=== PATIENT | female | born 1955 | race Caucasian/White ===

== ENCOUNTER 2024-07-18 11:36 | Emergency (ER) | payer MEDICARE, OTHER, SELFPAY ==
[2024-07-18 12:01] VITALS: BP 143/88
[2024-07-18 12:23] LABS: % Basophils 1.6 % (0-2); % Eosinophils 4.5 % (0-6); % Immature Granulocytes 0.3 % (0-0.5); % Lymphocytes 21.2 % (20.5-51.1); % Monocytes 7.1 % (1.7-9.3); % Neutrophils 65.3 % (42.2-75.2); Absolute Basophils 0.2 10^3/uL (0-0.2); Absolute Eosinophils 0.4 10^3/uL (0-0.7); Absolute Monocytes 0.7 10^3/uL (0.1-0.6); Absolute Neutrophils 6.2 10^3/uL (1.4-6.5); Hematocrit 43.3 % (37.0-47.0); Mean Corp Hgb Conc. 34.6 g/dL (33.0-37.0); Mean Corpuscular Hgb 31.3 pg (27.0-31.0); Mean Corpuscular Volume 90.4 fL (81.0-99.0); Mean Platelet Volume 9.3 fL (7.4-10.4); Nucleated Red Blood Cells % 0 %; Platelet Count 458 10^3/uL (130-400); Red Blood Cell Count 4.79 10^6/uL (4.20-5.40); Red Cell Dist. Width 13.1 % (11.5-14.5); White Blood Cell Count 9.5 10^3/uL (4.8-10.8)
[2024-07-18 12:41] LABS: ALT (SGPT) 31 U/L (0-35); AST (SGOT) 37 U/L (14-36); Albumin 4.6 g/dl (3.5-5.0); Alkaline Phosphatase 143 U/L (38-126); Blood Urea Nitrogen 13 mg/dl (7-17); Calcium 10.3 mg/dl (8.4-10.2); Carbon Dioxide 25 mmol/L (22-30); Chloride 104 mmol/L (98-107); Glucose 102 mg/dl (70-99); Potassium 4.7 mmol/L (3.5-5.1); Sodium 140 mmol/L (135-145); Total Bilirubin 0.7 mg/dl (0.2-1.3); Total Protein 7.6 g/dl (6.3-8.2); eGFR > 60.00
[2024-07-18 12:48] LABS: Troponin I < 0.012 ng/ml
[2024-07-18 13:29] VITALS: BMI 20.7
[2024-07-18 13:31] VITALS: BP 137/89
[2024-07-18 14:00] VITALS: BP 134/85
--- NOTE | 2024-07-18 14:13 | ED.GENMED ---
History of Present Illness
General
Chief Complaint: Dizziness
Source: patient
Exam Limitations: none
Time Seen by Provider: 07/18/24 13:39
History of Present Illness
History of Present Illness:
69-year-old female with history of peripheral arterial disease on a statin presents with onset of dizziness last evening. She was sitting turned her head to the left and developed sudden dizziness which she described as a spinning sensation with
associated diaphoresis and nausea. There is no vomiting chest pain headache neck pain vision change or unilateral numbness or weakness. She is not anticoagulated. She has had vertigo in the past of which meclizine was helpful for her. This feels
much worse. Currently she denies dizziness. She notes only fatigue. She has been dealing with allergy symptoms.
Past History
Past History
ED Past Medical History: GERD
Social History
Tobacco: Smoker
Alcohol: None
Personal:
Phy Exam
Physical Exam
Physical Exam:
General: Well-appearing female no acute respiratory distress
HEENT: Normocephalic atraumatic pupils equal round reactive to light TMs normal extract motion intact. Subtle horizontal nystagmus noted tongue is symmetric
Heart: Regular rate and rhythm no murmurs
Lungs: Clear no wheeze
Neurologic exam: Alert and oriented finger-nose [id number] intact no drift on exam no facial asymmetry. Slightly increased symptoms upon Cele-Hallpike maneuver when turning the head to the left
Skin is warm no rash
Course
Orders/Labs/Results
Orders:
Orders
07/18/24 11:38
Electrocardiogram (*1) Urgent
Reason for Study: Chest Pain
EKG- Treatment ONCE
07/18/24 12:14
Complete Blood Count/With Diff Urgent
Comprehensive Metabolic Panel Urgent
Troponin I Urgent
07/18/24 14:13
Orthostatic VS- Treatment ONCE
Abnormal Lab Results
07/18/24
12:14
MCH 31.3 H pg
(27.0-31.0)
Plt Count 458 H 10^3/uL
(130-400)
Absolute Monos (auto) 0.7 H 10^3/uL
(0.1-0.6)
Glucose 102 H mg/dl
(70-99)
Calcium 10.3 H mg/dl
(8.4-10.2)
AST 37 H U/L
(14-36)
Alkaline Phosphatase 143 H U/L
(38-126)
07/18/24 12:14
07/18/24 12:14
Vital Signs
Initial and Last Documented VS:
Initial Vital Signs
Temp Pulse Resp BP Pulse Ox
98.2 F 71 18 143/88 97
07/18/24 12:01 07/18/24 12:01 07/18/24 12:01 07/18/24 12:01 07/18/24 12:01
Last Documented Vital Signs
Temp Pulse Resp BP Pulse Ox
98.2 F 61 18 137/89 98
07/18/24 12:01 07/18/24 13:29 07/18/24 12:01 07/18/24 13:31 07/18/24 13:31
MDM/Problems Addressed
Differential Diagnosis Includes:
Dizziness. Differential could include peripheral vertigo versus electrolyte abnormality versus anemia versus CVA versus arrhythmia
No unilateral deficit on exam to suggest CVA. No drift or ataxia noted. Symptoms are reproducible and I suspect more positional vertigo rather than CVA. EKG through triage shows sinus rhythm with a rate of 67 and no ischemic change. Labs
reviewed not anemic no electrolyte abnormality. Will check orthostatics
*Critical Care Note
Total Time (30-74mins, 75-104mins- exclusive of procedures): Not Applicable
Update Note
Update Note:
Patient has stable orthostatic vital signs. She is good on her feet. Pretty much symptom-free at this time other than some fatigue. No signs of CVA. Suspect peripheral vertigo. Recommend meclizine at home stable for discharge
ED Attending Note
-
Portions of this chart may have been created with voice recognition software.� Occasional wrong word or��sound alike� substitutions may have occurred due to the inherent limitations of voice recognition software.
Discharge Plan
Departure
Patient Disposition: Home (Routine Discharge)
Date of Disposition: 07/18/24
Time of Disposition: 14:57
Patient with high blood pressure during this ER visit?: No
Discharge Problem:
Vertigo
Instructions: Dizziness
Prescriptions:
No Action
esomeprazole magnesium [Nexium] 40 MG capsule,delayed release(DR/EC)
40 mg PO DAILY
Referrals:
UNKNOWN - PT DOES,NOT KNOW [Family Provider] -
Activity Restrictions/Additional Instructions:
Stay hydrated. Use meclizine if needed peer return if worse otherwise follow-up with your family doctor
Interventions
Interventions:
*Risk Screen - Suicide Last Done: 07/18/24 12:01
*General Assessment Last Done: 07/18/24 12:01
*Neglect/Abuse Screening Last Done: 07/18/24 12:01
ED- Fall Risk Assessment Last Done: 07/18/24 13:29
*ED COVID-19 Vaccine History Last Done: 07/18/24 13:29
ED- Neurological Assessment Last Done: 07/18/24 13:29
ED- Cardiac Assessment Last Done: 07/18/24 13:29
ED Swallowing Screen Last Done: 07/18/24 13:29
Discharge Date and Time
Print Language: TURKMEN
[2024-07-18 14:49] VITALS: BP 146/84
[2024-07-18 14:50] VITALS: BP 166/104
[2024-07-18 14:59] VITALS: BP 115/99; BP 134/85; BP 148/84; PULSE 68; PULSE 72; PULSE 74
== END 2024-07-18 15:18 | disposition home or self-care (01) ==
LOC: EMR 11:36
PROVIDERS: Emergency Medicine; EMERGENCY PHYSICIAN Emergency Medicine
DX: R42 Dizziness and giddiness (principal); I73.9 Peripheral vascular disease, unspecified; K21.9 Gastro-esophageal reflux disease without esophagitis; F17.200 Nicotine dependence, unspecified, uncomplicated
CPT/HCPCS: 99283; 80053; 84484; 85025; 93005

== ENCOUNTER 2024-08-19 16:52 | Inpatient (IN) | payer MEDICARE, OTHER, SELFPAY ==
[2024-08-19 13:42] VITALS: BP 111/84
[2024-08-19 14:27] VITALS: BMI 21.6
[2024-08-19 14:28] VITALS: BP 121/85
[2024-08-19 14:47] LABS: % Basophils 0.7 % (0-2); % Eosinophils 1.4 % (0-6); % Immature Granulocytes 0.5 % (0-0.5); % Lymphocytes 11.8 % (20.5-51.1); % Monocytes 8.5 % (1.7-9.3); % Neutrophils 77.1 % (42.2-75.2); Absolute Basophils 0.1 10^3/uL (0-0.2); Absolute Eosinophils 0.2 10^3/uL (0-0.7); Absolute Immature Granulocytes 0.1 10^3/uL (0-0.05); Absolute Lymphocytes 1.6 10^3/uL (1.2-3.4); Absolute Monocytes 1.2 10^3/uL (0.1-0.6); Absolute Neutrophils 10.5 10^3/uL (1.4-6.5); Hematocrit 43.2 % (37.0-47.0); Hemoglobin 14.5 g/dL (12.0-16.0); Mean Corp Hgb Conc. 33.6 g/dL (33.0-37.0); Mean Corpuscular Hgb 31.1 pg (27.0-31.0); Mean Corpuscular Volume 92.7 fL (81.0-99.0); Mean Platelet Volume 9.5 fL (7.4-10.4); Nucleated Red Blood Cells % 0 %; Platelet Count 421 10^3/uL (130-400); Red Blood Cell Count 4.66 10^6/uL (4.20-5.40); Red Cell Dist. Width 12.7 % (11.5-14.5); White Blood Cell Count 13.6 10^3/uL (4.8-10.8)
[2024-08-19 15:00] VITALS: BP 118/69
[2024-08-19 15:01] LABS: Blood Urea Nitrogen 13 mg/dl (7-17); Calcium 9.6 mg/dl (8.4-10.2); Carbon Dioxide 23 mmol/L (22-30); Chloride 102 mmol/L (98-107); Estimated Creatinine Clearance 76 ml/min; Glucose 154 mg/dl (70-99); Sodium 137 mmol/L (135-145); eGFR > 60.00
[2024-08-19 15:05] LABS: COVID-19 Antigen Negative (Negative)
--- NOTE | 2024-08-19 15:18 | ED.GENMED ---
History of Present Illness
General
Chief Complaint: Breathing Problem
Source: patient
Exam Limitations: none
Time Seen by Provider: 08/19/24 14:04
History of Present Illness
History of Present Illness:
Patient with cough and congestion for about 2 weeks. Some myalgias. Was on doxycycline. Started to feel better although now in the last few days has been feeling worse. Initially started with some minimal blood-streaked sputum slightly thicker
blood today. Some left lateral chest pain with this also. Mildly pleuritic in nature.
Past History
Past History
ED Past Medical History: GERD and Hypercholesterolemia
ED Past Surgical History: Cardiac (Ablation), Cholecystectomy and Gynecological
Social History
Tobacco: Smoker
Alcohol: None
Personal:
Review of Systems
Review of Systems
All Other Systems: Not applicable
Constitutional: Reports fever and chills
ABD/GI: Reports no symptoms
: Reports no symptoms
Phy Exam
Physical Exam
Physical Exam:
GENERAL: Alert and oriented in no apparent distress
EYE: Orbits normal.
NECK: Supple
ENT: Pharynx without erythema
CARDIAC: Regular rate and rhythm without any obvious murmurs.
LUNGS: No respiratory distress. Some crackles in the bases. Decreased breath sounds left base
ABDOMEN: Soft, without focal tenderness or distention
NEUROLOGICAL: Alert and oriented , grossly non-focal
SKIN: Warm and dry, no rash or lesion, no discoloration, skin intact.
MUSCULOSKELETAL: No edema,no deformity.Good color
PSYCH: Normal and appropriate interaction.
Scores
Heart Failure Risk
Heart Failure Risk Score: Not Applicable
Course
Orders/Labs/Results
Orders:
Orders
08/19/24 Breakfast
Cholesterol Lowering
At Your Request: Full Participation
Cholesterol Lowering: Sodium, 2 Gram
08/19/24 14:16
Cardiac Monitoring- Treatment ONCE
IV Insert/Care/Rem.- Treatment PRN
08/19/24 14:17
Electrocardiogram (*1) Stat
Reason for Study: Other
Other Reason for Exam: pneumonia
EKG- Treatment ONCE
CR Chest - 2 Views Urgent
Comment:
Reason For Exam: Cough/hemoptysis
08/19/24 14:37
Basic Metabolic Panel Urgent
COVID-19 Antigen Urgent
Source: Nasal Swab
Complete Blood Count/With Diff Urgent
Influenza A+B Rapid Molecular Urgent
DANIEL Source: Nasal Swab
Specimen Description:
08/19/24 16:11
Admit/Transfer Patient As Directed
Co-Sign Provider:
Level of Care: Inpatient admission
Assign to:: Medical/Surgical
Physician / Group: luis
Diagnosis: pnuemonia
Reason for Hospitalization: pneumonia
Expected length of stay greater than two midnights?: Yes
ELOS- Estimated Length of Stay in days: 3
I certify the patient meets the requirements for IP care: Yes
Code Status As Directed
Resuscitation Status: Full Code
PRN Pain Medication Management As Directed
May give lesser potent ordered pain med per pt: Yes
preference::
Protocol:: Medication orders for pain may be administered in a
manner that supports deferring to patient preference
when the pt is:
- Requesting an ordered lesser potent pain medication.
Least to most potent pain medications are defined
as: acetaminophen < NSAID < tramadol < opioids
(morphine, oxycodone, hydromorphone).
- Requesting a lesser dose of the same medication IF
ORDERED.
- Requesting a less intrusive route of administration
if both routes are prescribed by the provider (PO <
IV).
08/19/24 16:19
Azithromycin 500 mg/250 ml [Zithromax Infusion] 500 mg in 250 ml IV NOW
CefTRIAXone [Rocephin] 1,000 mg IV NOW STA
08/19/24 16:32
Acetaminophen [Tylenol] 650 mg PO NOW STA
08/19/24 19:42
Acetaminophen [Tylenol] 650 mg PO Q4HPRN PRN
Enoxaparin Sodium [Lovenox] 40 mg SC QPM
Ipratropium/Albuterol Sulfate [Duoneb] 3 ml INH R Q4HPRN PRN
08/19/24 19:42
Legionella Urinary Antigen Routine
DANIEL Source: Urine
Specimen Description:
Respiratory Culture/Gram Stain Routine
DANIEL Source: Sputum
Specimen Description:
Strep pneumoniae Antigen Routine
DANIEL Source: Urine
Specimen Description:
Activity As Directed
Activity Level: Out of Bed-Early Mobility
Intake/ Output As Directed
Frequency: Per unit guidelines
Quantify Hemopytsis As Directed
Vital Signs As Directed
Frequency: Per unit guidelines
Weight As Directed
Frequency: Once
Comment: on admission
DX Deep Vein Thrombosis Video Routine
08/19/24 20:00
Guaifenesin [Mucinex] 600 mg PO Q12
08/19/24 22:00
Atorvastatin [Lipitor] 40 mg PO HS
Sertraline HCl [Zoloft] 100 mg PO HS
08/20/24 06:00
Basic Metabolic Panel IN AM
Complete Blood Count/No Diff IN AM
08/20/24 16:00
Azithromycin 500 mg/250 ml [Zithromax Infusion] 500 mg in 250 ml IV Q24H
CefTRIAXone [Rocephin] 1,000 mg IV Q24H
08/21/24 06:00
Basic Metabolic Panel IN AM
Complete Blood Count/No Diff IN AM
08/22/24 06:00
Basic Metabolic Panel IN AM
Complete Blood Count/No Diff IN AM
08/23/24 06:00
Basic Metabolic Panel IN AM
Complete Blood Count/No Diff IN AM
Abnormal Lab Results
08/19/24
14:37
WBC 13.6 H 10^3/uL
(4.8-10.8)
MCH 31.1 H pg
(27.0-31.0)
Plt Count 421 H 10^3/uL
(130-400)
Abs Immat Gran (auto) 0.1 H 10^3/uL
(0-0.05)
Absolute Neuts (auto) 10.5 H 10^3/uL
(1.4-6.5)
Absolute Monos (auto) 1.2 H 10^3/uL
(0.1-0.6)
Neutrophils % 77.1 H %
(42.2-75.2)
Lymphocytes % 11.8 L %
(20.5-51.1)
Glucose 154 H mg/dl
(70-99)
08/19/24 14:37
08/19/24 14:37
Vital Signs
Initial and Last Documented VS:
Initial Vital Signs
Temp Pulse Resp BP Pulse Ox
99.1 F 103 20 111/84 95
08/19/24 13:42 08/19/24 13:42 08/19/24 13:42 08/19/24 13:42 08/19/24 13:42
Last Documented Vital Signs
Temp Pulse Resp BP Pulse Ox
98.5 F 82 18 112/76 95
08/19/24 19:50 08/19/24 19:50 08/19/24 19:50 08/19/24 19:50 08/19/24 19:50
*Pulse Oximetry
Patient hypoxic: no
*EKG
Interpreted by ED Provider?: Yes
Interpretation: normal
Comparison EKG: no changes
Heart Rate: 89
Rate: normal
Rhythm: sinus
[place]: normal axis
Interval: normal interval
QRS Pattern: normal QRS
Ischemia: no ischemia
*Critical Care Note
Total Time (30-74mins, 75-104mins- exclusive of procedures): Not Applicable
ED Attending Note
-
Portions of this chart may have been created with voice recognition software.� Occasional wrong word or��sound alike� substitutions may have occurred due to the inherent limitations of voice recognition software.
Discharge Plan
Departure
Patient Disposition: Admit
Date of Disposition: 08/19/24
Time of Disposition: 15:40
Presentation/result/management discussed w/ accepting MD/DO: Hospitalist
Discharge Problem:
Pneumonia/hemoptysis, Failed outpatient treatment
Interventions
Interventions:
*Risk Screen - Suicide Last Done: 08/19/24 13:42
*General Assessment Last Done: 08/19/24 13:42
*Neglect/Abuse Screening Last Done: 08/19/24 13:42
*ED COVID-19 Vaccine History Last Done: 08/19/24 14:39
*Nursing Disposition Last Done: 08/19/24 19:45
ED- Cardiac Assessment Last Done: 08/19/24 15:55
ED- Pulmonary Assessment Last Done: 08/19/24 14:40
Discharge Date and Time
Discharge Date/Time: 08/19/24 19:46
--- NOTE | 2024-08-19 15:51 | HPS.HSE ---
Family Physician
-
Family Physician: Jeremy Montoya
Chief Complaint
-
Cough congestion
History of Present Illness
69-year-old with past medical history for hyperlipidemia, anxiety presented to us with 2 weeks of generalized body achiness, cough with bloody sputum, congestion . She started having left-sided chest pain yesterday. Patient took doxycycline for 10
days .today was her last day.she felt little better on doxy, but her symptoms got worse. Patient complained of chills denied fever.stated headache .denied dizziness or syncopal episode .patient denies short of breath .patient denied abdominal pain,
nausea, vomiting, diarrhea. Patient denied dysuria, hematuria.
Chest x-ray with pneumonia. Admitting for further management.
Medical History
Past Medical History
Past Medical History: Reports Other
Additional Past Medical History:
Hyperlipidemia
Anxiety
Past Surgical History: Reports Other
Additional Past Surgical History:
Hysterectomy, cholecystectomy
Social History
Tobacco: Smoker (Less than half)
Alcohol: Occasional
Drug: None
Family History
Family History: Not pertinent
Allergies / Home Medications
Allergies reflects when Allergies were last updated in [employer].
Home Medications with original date entered in [employer]
Allergy/Medication List:
Allergies
Allergy/AdvReac Type Severity Reaction Status Date / Time
No Known Allergies Allergy Verified 08/19/24 13:45
Home Medications
atorvastatin 40 mg tablet 40 mg PO HS High Cholesterol 08/19/24
doxycycline monohydrate 100 mg capsule 100 mg PO BID Infection 08/19/24
sertraline 100 mg tablet 100 mg PO HS depression/anxiety 08/19/24
Review of Systems
-
Constitutional: Reports No Symptoms, Fatigue and Chills
EENT: Reports Runny Nose
Respiratory: Reports Cough, Hemoptysis and Trouble Breathing
Cardiac: Reports Chest Pain
Abdomen/GI: Reports No Symptoms
: Reports No Symptoms
Musculoskeletal: Reports No Symptoms
Skin: Reports No Symptoms
Neurological: Reports No Symptoms
Endocrine: Reports No Symptoms
Hematologic/Lymphatic: Reports No Symptoms
Psych: Reports No Symptoms
Physical Exam
Vital Signs
Vital Signs
Temp Pulse Resp BP Pulse Ox
99.1 F 92 17 121/85 96
08/19/24 13:42 08/19/24 14:28 08/19/24 14:28 08/19/24 14:28 08/19/24 14:40
Physical Exam
General: Well Developed, Well Nourished and No Apparent Distress
HEENT: NormoCephalic, Moist mucous membranes and Atraumatic
Respiratory: Clear
Cardiac: S1/S2 and Regular Rhythm; No Murmur or Rub
GI: Soft, Non Tender, Non Distended and Normal Bowel Sounds; No Organomegaly
Rectal: Deferred by Provider
Musculoskeletal: No Clubbing, No Cyanosis and No Edema
Skin: No Rash
Neuro: AO x 3 and Nonfocal/grossly intact
Psych: Calm
Laboratory Results
-
08/19/24 14:37
08/19/24 14:37
Data Reviewed
-
Diagnostic Radiology: Report Reviewed by me
Lab Data: Labs Reviewed by me
Impression/Plan
-
# Left lingular pneumonia
-WBC 13.6
-COVID-negative, influenza negative
-Chest x-ray with impression of Pneumonia of the lingula/left upper lobe. Radiographic follow-up to resolution is recommended.
-IV ceftriaxone and zithro
-Tylenol as needed for fever or pain
-Obtain sputum culture
-Obtain Legionella urine, strep pneumonia
-Mucinex as needed for cough
-quantify hemoptysis
# Hyperlipidemia
-Atorvastatin continued
# Anxiety
-Sertraline continued
# DVT prophylaxis
-Lovenox
# CODE STATUS
-Full code
[2024-08-19] MEDS: TYLENOL 650 MG PO (16:40)
[2024-08-19] MEDS: ROCEPHIN 1000 MG IV (16:41)
[2024-08-19] MEDS: ZITHROMAX INFUSION 250 IV (16:41)
--- NOTE | 2024-08-19 16:53 | W.PN.UPDATE ---
Update Note
Progress Note Update
This is an addendum to the H&P written by Kate Bernal on 08/19/2024. Patient seen and examined independently with [employer]
69-year-old female past medical history of presenting with cough with bloody clots and bloody sputum.
She developed cough with blood-tinged sputum 9 days ago with chills and shortness of breath and was started on doxycycline. Her symptoms improved but yesterday she began to have symptoms again with worsening cough, left-sided chest discomfort with
cough and bloody clots.
Chest x-ray shows pneumonia of the lingula/left upper lobe. Ceftriaxone/azithromycin. Sputum culture, quantify hemoptysis.
[2024-08-19 18:00] VITALS: BP 114/79
[2024-08-19 19:50] VITALS: BP 112/76; BMI 21.5
[2024-08-19] MEDS: LOVENOX 40 MG SC (21:01)
[2024-08-19] MEDS: ZOLOFT 100 MG PO (21:02)
[2024-08-19] MEDS: MUCINEX 600 MG PO (21:02)
[2024-08-19] MEDS: LIPITOR 40 MG PO (21:02)
[2024-08-19 23:22] VITALS: BP 114/72
[2024-08-20 07:20] VITALS: BP 133/85
--- NOTE | 2024-08-20 07:39 | W.PN.HOSP.TC ---
Addendum entered and electronically signed by Pam Stafford MD 08/20/24 14:30:
I saw and evaluated the patient independently. I reviewed the resident�s note and agree with findings and plan as documented by Dr. Salter.
GENERAL: well developed, well nourished, female in no apparent distress
HEENT: NC/AT
HEART: regular rate and rhythm, +S1, +S2
LUNGS : decreased breath sounds left lung base
ABDOM: soft, nontender, nondistended, + bowel sounds
EXT: no cyanosis, clubbing, or edema
NEUROLOGIC: grossly intact
Left lingular pneumonia with hemoptysis--likely persistent--s/p 10 days of doxycycline--no O2 requirements--cont ceftriaxone/zithromax--urine legionella and strep negative, Covid/flu negative--cont mucinex and quantify hemoptysis
Hyperlipidemia--Continue atorvastatin
Anxiety--Continue sertraline
smoker--counselled to stop
DVT prophylaxis--Lovenox
code status--FULL CODE
Original Note:
Today's Communication/Plan
-
.
Assessment / Plan
Assessment / Plan
69-year-old female with past medical history of hyperlipidemia and anxiety presented to [facility] with 2 weeks of generalized bodyaches, chills, cough with bloody sputum, congestion and left-sided chest pain, now being managed for left
lingula pneumonia.
#Left lingular pneumonia
Trend white blood cell count. Down from 13.6 yesterday to 13.2 today
Continue to trend fever, currently afebrile
Continue IV ceftriaxone and azithromycin
Continue Tylenol as needed for fever or pain
Continue Mucinex as needed for cough
Continue quantify hemoptysis
Sputum culture, Legionella urine, strep pneumonia pending
COVID and flu negative
#Hyperlipidemia
Continue atorvastatin
#Anxiety
Continue sertraline
#DVT prophylaxis
Lovenox
CODE STATUS: Full code
Anticipated Discharge: 24 - 48 hours
Subjective/Interval History
-
Date of Service: August 20, 2024
69-year-old female with past medical history of hyperlipidemia and anxiety presented to [facility] with 2 weeks of generalized bodyaches, chills, cough with bloody sputum, congestion and left-sided chest pain. She had been prescribed
doxycycline for 10 days, which improved symptoms slightly however eventually symptoms progressed. Chest x-ray showed pneumonia of the lingula/left upper lobe. Today in conversation, she states that overnight she was not able to sleep well, had
chills and night sweats, felt feverish and continued to have left-sided chest discomfort. She is still coughing up blood. She reports no headaches, nausea, vomiting, abdominal pain, GI upset, numbness or tingling in extremities.
Objective Data
-
Labs:
Laboratory Results
08/20/24
07:08
WBC Pending
Hgb Pending
Hct Pending
Plt Count Pending
Sodium Pending
Potassium Pending
Chloride Pending
Carbon Dioxide Pending
BUN Pending
Creatinine Pending
Glucose Pending
Calcium Pending
Vital Signs:
Vital Signs
Temp Pulse Resp BP Pulse Ox
99.1 F 86 17 114/72 93
08/19/24 23:22 08/19/24 23:22 08/19/24 23:22 08/19/24 23:22 08/19/24 23:22
I&O
08/19/24 08/20/24 08/21/24
06:59 06:59 06:59
Intake Total 0 / 0
Output Total 300 / 300
Balance -300 / -300
Review of Systems
-
History Source: Patient
Constitutional: Reports Sleep Disturbance, Night Sweats and Chills
Respiratory: Reports Cough and Hemoptysis
Cardiac: Reports Chest Pain
Abdomen/GI: Reports No Symptoms
Genitourinary: Reports No Symptoms
Musculoskeletal: Reports No Symptoms
Physical Exam
-
General: Well Developed, Well Nourished, Conversant and Other (Warm to touch)
HEENT: Normocephalic and Atraumatic
Respiratory: Decreased Breath Sounds
Cardiac: Regular Rhythm and S1/S2
GI: Soft, Nontender, Nondistended and Normal Bowel Sounds
Musculoskeletal: No Clubbing, No Cyanosis and No Edema
Skin: Warm and Dry
Neuro: AO x 3
Psych: Calm
Data Reviewed
-
CT Scan: Report Reviewed by me and Discussed with Physician
Labs: Labs Reviewed by me and Discussed with Physician
Old Records: Reviewed
[2024-08-20] MEDS: TYLENOL 650 MG PO ×2 (07:44→16:12)
[2024-08-20] MEDS: MUCINEX 600 MG PO ×2 (07:44→21:03)
[2024-08-20 07:51] LABS: Blood Urea Nitrogen 13 mg/dl (7-17); Calcium 9.5 mg/dl (8.4-10.2); Carbon Dioxide 24 mmol/L (22-30); Chloride 105 mmol/L (98-107); Estimated Creatinine Clearance 76 ml/min; Glucose 112 mg/dl (70-99); Potassium 4.7 mmol/L (3.5-5.1); Sodium 140 mmol/L (135-145); eGFR > 60.00
[2024-08-20 08:28] LABS: Hematocrit 41.6 % (37.0-47.0); Hemoglobin 14.1 g/dL (12.0-16.0); Mean Corp Hgb Conc. 33.9 g/dL (33.0-37.0); Mean Corpuscular Hgb 31.8 pg (27.0-31.0); Mean Corpuscular Volume 93.7 fL (81.0-99.0); Mean Platelet Volume 10.4 fL (7.4-10.4); Platelet Count 424 10^3/uL (130-400); Red Blood Cell Count 4.44 10^6/uL (4.20-5.40); Red Cell Dist. Width 12.7 % (11.5-14.5); White Blood Cell Count 13.2 10^3/uL (4.8-10.8)
--- NOTE | 2024-08-20 14:27 | CM ---
Patient seen at bedside. Patient stated that she lives alone in a 2 story condo. Patient stated that she has no DME at home. Patient PCP is Dr. Montoya and she uses the [facility] in [place]. Patient is independent and driving. Patient stated that she plans
to return home with no needs. CM will continue to follow of discharge planning needs.
Plan; home with VN vs home with no needs.
[2024-08-20] MEDS: STERILE WATER FOR INJECTION 10 ML IV (15:02)
[2024-08-20] MEDS: ROCEPHIN 1000 MG IV (15:03)
[2024-08-20] MEDS: ZITHROMAX INFUSION 250 IV (15:06)
[2024-08-20 15:20] VITALS: BP 139/82
[2024-08-20] MEDS: LOVENOX 40 MG SC (17:19)
[2024-08-20] MEDS: ZOLOFT 100 MG PO (21:02)
[2024-08-20] MEDS: LIPITOR 40 MG PO (21:02)
[2024-08-20 23:15] VITALS: BP 124/87
[2024-08-21] MEDS: TYLENOL 650 MG PO ×3 (02:44→15:13)
--- NOTE | 2024-08-21 07:20 | W.PN.HOSP.TC ---
Addendum entered and electronically signed by Nathalia Salter DO, Resident 08/21/24 18:01:
Patient meets criteria for SIRS at time of admission with WBC count elevated and tachycardia.
Addendum entered and electronically signed by Pam Stafford MD 08/21/24 13:37:
pt met criteria for sepsis (POA) due to Left lingular pneumonia
Addendum entered and electronically signed by Pam Stafford MD 08/21/24 12:59:
I saw and evaluated the patient independently. I reviewed the resident�s note and agree with findings and plan as documented by Dr. Salter.
GENERAL: well developed, well nourished, female in no apparent distress
HEENT: NC/AT
HEART: regular rate and rhythm, +S1, +S2
LUNGS : decreased breath sounds left lung base
ABDOM: soft, nontender, nondistended, + bowel sounds
EXT: no cyanosis, clubbing, or edema
NEUROLOGIC: grossly intact
Left lingular pneumonia with hemoptysis--likely persistent--s/p 10 days of doxycycline--no O2 requirements--change ceftriaxone/zithromax to augmentin at d/c 875mg BID x 10 days--urine legionella and strep negative, Covid/flu negative--cont mucinex
Hyperlipidemia--Continue atorvastatin
Anxiety--Continue sertraline
smoker--counselled to stop
DVT prophylaxis--Lovenox
code status--FULL CODE
OK for D/C
Original Note:
Today's Communication/Plan
-
.
Assessment / Plan
Assessment / Plan
69-year-old female with past medical history of hyperlipidemia and anxiety presented to [facility] with 2 weeks of generalized bodyaches, chills, cough with bloody sputum, congestion and left-sided chest pain, now being managed for left
lingula pneumonia.
#Left lingular pneumonia
Trend white blood cell count. Down from 13.6 to 13.2 to 13.7
Continue to trend fever, currently afebrile
Continue IV ceftriaxone and azithromycin
Continue Tylenol as needed for fever or pain
Continue Mucinex as needed for cough
Continue quantify hemoptysis
Sputum culture, Legionella urine, strep pneumonia negative
COVID and flu negative
#Hyperlipidemia
Continue atorvastatin
#Anxiety
Continue sertraline
#DVT prophylaxis
Lovenox
CODE STATUS: Full code
Anticipated Discharge: Within 24 hours
Subjective/Interval History
-
Date of Service: August 21, 2024
69-year-old female with past medical history of hyperlipidemia and anxiety presented to [facility] with 2 weeks of generalized bodyaches, chills, cough with bloody sputum, congestion and left-sided chest pain, now being managed for left
lingula pneumonia. Today she reports feeling better than yesterday, however continues to have left-sided pain. She states she still has blood-tinged sputum.
Objective Data
-
Labs:
Laboratory Results
08/21/24
06:34
WBC Pending
Hgb Pending
Hct Pending
Plt Count Pending
Sodium Pending
Potassium Pending
Chloride Pending
Carbon Dioxide Pending
BUN Pending
Creatinine Pending
Glucose Pending
Calcium Pending
Vital Signs:
Vital Signs
Temp Pulse Resp BP Pulse Ox
99.0 F 93 16 124/87 92
08/20/24 23:15 08/20/24 23:15 08/20/24 23:15 08/20/24 23:15 08/20/24 23:15
I&O
08/20/24 08/21/24 08/22/24
06:59 06:59 06:59
Intake Total 0 / 0 1330 / 1330
Output Total 300 / 300
Balance -300 / -300 1330 / 1330
Review of Systems
-
History Source: Patient
Constitutional: Reports No Symptoms
EENT: Reports No Symptoms Reported
Respiratory: Reports Cough and Hemoptysis
Cardiac: Reports No Symptoms
Abdomen/GI: Reports No Symptoms
Musculoskeletal: Reports Muscle Pain
Physical Exam
-
General: Well Developed, Well Nourished, No Apparent Distress and Conversant
HEENT: Normocephalic and Atraumatic
Respiratory: Crackles
Cardiac: Regular Rhythm and S1/S2
GI: Soft, Nontender, Nondistended and Normal Bowel Sounds
Musculoskeletal: No Clubbing, No Cyanosis and No Edema
Skin: Warm and Dry
Neuro: AO x 3
Psych: Calm
Data Reviewed
-
Labs: Labs Reviewed by me and Discussed with Physician
Old Records: Reviewed
[2024-08-21 07:30] VITALS: BP 133/77
[2024-08-21 08:01] LABS: Hematocrit 40.9 % (37.0-47.0); Hemoglobin 13.6 g/dL (12.0-16.0); Mean Corp Hgb Conc. 33.3 g/dL (33.0-37.0); Mean Corpuscular Hgb 31.3 pg (27.0-31.0); Mean Corpuscular Volume 94.2 fL (81.0-99.0); Mean Platelet Volume 10.1 fL (7.4-10.4); Platelet Count 420 10^3/uL (130-400); Red Blood Cell Count 4.34 10^6/uL (4.20-5.40); Red Cell Dist. Width 12.4 % (11.5-14.5); White Blood Cell Count 13.7 10^3/uL (4.8-10.8)
[2024-08-21] MEDS: MUCINEX 600 MG PO (08:10)
[2024-08-21 08:30] LABS: Blood Urea Nitrogen 11 mg/dl (7-17); Calcium 9.2 mg/dl (8.4-10.2); Carbon Dioxide 22 mmol/L (22-30); Chloride 103 mmol/L (98-107); Estimated Creatinine Clearance 76 ml/min; Glucose 96 mg/dl (70-99); Potassium 4.2 mmol/L (3.5-5.1); Sodium 137 mmol/L (135-145); eGFR > 60.00
--- NOTE | 2024-08-21 09:15 | PN.CDI ---
CDI
- -
CDI:
Physician Documentation Request
Admit Date: 08/19/24 16:52
Dear Doctor Joie,
Patient admitted with left lingular pneumonia.
On admission, WBC 13.6 and HR > 90.
Patient receiving IV Ceftriaxone and IV Zithromax.
Please clarify which of the following most accurately describes the status of the patient's infection:
Sepsis, POA
Pneumonia only
Other
Sepsis
- Systemic manifestations of infection, with 2 or more SIRS criteria which include:
- Fever >100.4 degrees F or hypothermia < 96.8 degrees F
- Leukocytosis - WBC > 12,000 or leukopenia - WBC < 4,000 or > 10% bands
- Tachycardia > 90 beats per minute
- Tachypnea - RR > 20 breaths per minute or PaCO2 , 32mmHg
Source: Merck Manual 2013
- Indicate the known or suspected organism
- Indicate the known or suspected underlying infection, such as pneumonia
Localized Infection Only, Without Systemic Illness
- indicate the site/source, such as pneumonia
Other
Use of terms such as suspected, likely, concern for, or probable (associated with a specific diagnosis that is being evaluated, monitored, or treated as if it exists) are acceptable and can be coded in the inpatient setting, when documented at the
time of discharge.
Thank you,
Sanam BALTAZAR,RN,CCDS
CDI Specialist
Available via tiger text
Please use your independent medical judgment in providing your response.
--- NOTE | 2024-08-21 12:19 | W.DCSUMMARY ---
Addendum entered and electronically signed by Pam Stafford MD 08/21/24 18:45:
Read, reviewed, and agree. See same day progress note for additional details. Time spent coordinating care, DC planning, review of DC plan of care with resident, transition of care, review of records in EMR, med rec, consults, notes, d/w
consultants, nursing, family, and CM = 32 minutes
Patient should also have a chest x-ray to ensure clearance after completion of the new antibiotic, Augmentin.
Original Note:
Discharge Summary
Discharge Data
Date of Admission: 08/19/24
Date of Discharge: 08/21/24
Total time spent discharging patient (in min): 32
-
Pending Results: No
Hospital Course
Presenting symptoms: Left-sided chest pain, blood-tinged sputum
Hospital diagnosis: Left-sided pneumonia
Hospital Course: 69-year-old female with past medical history of hyperlipidemia and anxiety presented to [facility] with 2 weeks of generalized bodyaches, chills, cough with bloody sputum, congestion and left-sided chest pain, now being
managed for left lingula pneumonia. She had been prescribed doxycycline for 10 days, which improved symptoms slightly however eventually symptoms progressed. Chest x-ray showed pneumonia of the lingula/left upper lobe. At home, she was
experiencing a fever, chills, left-sided rib pain and blood-tinged sputum. COVID and flu was negative at time of admission. Urine Legionella and strep is negative. On 08/19, she was experiencing leukocytosis without fevers. During admission she
was started on IV ceftriaxone and azithromycin, Tylenol and Mucinex for pneumonia coverage and symptom management. All other home medications were continued. Patient continued to remain afebrile and stable and will be discharged home with
Augmentin.
#Left lingular pneumonia: Take Augmentin twice a day for 10 days for pneumonia management. Continue Tylenol and Mucinex for symptom management.
#Hyperlipidemia: Continue atorvastatin
#Anxiety: Continue sertraline
Imaging reviewed during admission:
CXR (08/20):
IMPRESSION:
Pneumonia of the lingula/left upper lobe. Radiographic follow-up to resolution is recommended.
Discharge Plan
-
Patient Disposition: Home (Routine Discharge)
Discharge Diagnosis/Procedures: pneumonia
Condition: Fair
Diet: No restrictions, As tolerated and Regular
Activity: No restrictions and As tolerated
Driving Restrictions: As prior to admission
Referrals:
Jeremy Montoya MD [Family Provider] - in less than 1 week
Additional Discharge Medication Instructions: Please take augmentin twice daily with food
Please take tylenol as needed for pain/fever
Please take Mucinex as needed for cough/sputum
Prescriptions:
New
amoxicillin-pot clavulanate [Augmentin] 500-125 mg tablet
1 tab PO BID Qty: 20 0RF
Continued
atorvastatin 40 mg Tablet
40 mg PO HS
sertraline 100 mg Tablet
100 mg PO HS
Discontinued
doxycycline monohydrate 100 mg Capsule
100 mg PO BID
Discharge Orders:
Discharge Patient (As Directed); Ordered 08/21/24
Ordered By: Nathalia Salter
Discharge Date and Time
Print Language: K[place]HILI
--- NOTE | 2024-08-21 14:59 | CM ---
Patient seen at bedside with physician. Patient states that she is eager to go home. IMM reviewed and signed form placed on chart. Patient for family to transport home. Patient with no VN for supports at this time. CM will continue to follow for
discharge planning needs.
Plan; home with no needs anticipated.
[2024-08-21] MEDS: ROCEPHIN 1000 MG IV (15:04)
[2024-08-21] MEDS: STERILE WATER FOR INJECTION 10 ML IV (15:05)
[2024-08-21] MEDS: ZITHROMAX INFUSION 250 IV (15:05)
[2024-08-21 15:20] VITALS: BP 139/89
[2024-08-22 15:35] LABS: Hepatitis C Antibody Negative (Negative)
== END 2024-08-21 17:05 | disposition home or self-care (01) | DRG 871 ==
LOC: 4 EAST ACU 16:52
PROVIDERS: Registered Nurse; ADMITTING PHYSICIAN Hospitalist; ATTENDING PHYSICIAN Internal Medicine; EMERGENCY PHYSICIAN Emergency Medicine; FAMILY PHYSICIAN Internal Medicine
DX: A41.9 Sepsis, unspecified organism (principal); J18.9 Pneumonia, unspecified organism; E78.00 Pure hypercholesterolemia, unspecified; F41.9 Anxiety disorder, unspecified; F17.200 Nicotine dependence, unspecified, uncomplicated; K21.9 Gastro-esophageal reflux disease without esophagitis; Z11.52 Encounter for screening for COVID-19; Z79.899 Other long term (current) drug therapy
CPT/HCPCS: 71046; 80048; 85025; 85027; 86803; 87205; 87449; 87502; 87811; 87899; 93005; 99285; 99406

== ENCOUNTER 2024-08-25 20:07 | Inpatient (IN) | payer MEDICARE, OTHER, SELFPAY ==
[2024-08-25] VITALS (11 sets, daily range): BP systolic 112–139; BP diastolic 63–95; BMI 19.9; BMI 19.5
--- NOTE | 2024-08-25 12:23 | ED.GENMED ---
ED Provider Triage
<Zaina Barbour PAINT BOOTH OPERATOR - Last Filed: 08/25/24 12:24>
-
Attestation: A medical screening examination has been initiated by a qualified medical provider. Based on the assessment performed at this time, it has been determined that an emergent medical condition may exist and the patient has been informed
that further medical evaluation and possible additional diagnostic testing may be needed.
HPI:
GENERAL: Alert , in no apparent distress
EYE: No visual abnormalities.
NECK: Trachea midline
ENT: No visible abnormalities.
LUNGS: No acute respiratory distress
NEUROLOGICAL: Alert and oriented
SKIN: Skin intact. No visible changes.
MUSCULOSKELETAL: Moving extremities normally
PSYCH: Normal and appropriate interaction.
This is a medical evaluation conducted in person to initiate diagnostic evaluation and provide initial therapeutics. Please see further documentation by the treating clinician.
History of Present Illness
<Zaina Barbour PAINT BOOTH OPERATOR - Last Filed: 08/25/24 12:24>
General
Chief Complaint: Breathing Problem
Time Seen by Provider: 08/25/24 12:23
<Leonard Arrington PA-C - Last Filed: 08/25/24 19:29>
History of Present Illness
History of Present Illness:
69-year-old female with history of chronic tobacco use and hyperlipidemia presents to the emergency department for evaluation of worsening shortness of breath, chest tightness, productive cough, and fatigue. She was discharged from this hospital 4
days ago with a diagnosis of pneumonia, currently still on Augmentin for a total of 10 days. Continues to have blood-tinged sputum and just has not had any symptomatic improvement. Denies continued fever but does have body aches.
Past History
<Zaina Barbour PAINT BOOTH OPERATOR - Last Filed: 08/25/24 12:24>
Past History
ED Past Medical History: GERD and Hypercholesterolemia
ED Past Surgical History: Cardiac (Ablation), Cholecystectomy and Gynecological
Social History
Tobacco: Smoker
Alcohol: None
Personal:
Review of Systems
<Leonard Arrington PA-C - Last Filed: 08/25/24 19:29>
Review of Systems
Allergies reviewed?: Yes
All Other Systems: ROS reviewed and negative except as documented in HPI and ROS
Phy Exam
<Leonard Arrington PA-C - Last Filed: 08/25/24 19:29>
Physical Exam
Physical Exam:
GEN: Well appearing, NAD, WDWN
Eyes: PERRLA, EOMs intact, no scleral icterus
HENT: NCAT, oral mucosa moist
Lungs: Mildly tachypneic but with no increased respiratory effort otherwise, lungs globally clear with diminished bibasilar breath sounds
Cardiac: RRR, no M/R/G, no peripheral edema. Radial pulses 2+ bilat
Neuro: AO x 3
MSK: No gross deformity or ecchymosis. No edema. No digital clubbing
Skin: No rashes, petechiae. Normal color, no pallor or jaundice.
Psych: Calm, cooperative, proper hygiene
Scores
<Leonard Arrington PA-C - Last Filed: 08/25/24 19:29>
Heart Failure Risk
Heart Failure Risk Score: Not Applicable
Course
<Zaina Barbour, PAINT BOOTH OPERATOR - Last Filed: 08/25/24 12:24>
Orders/Labs/Results
Orders:
Orders
08/25/24 12:50
Electrocardiogram (*1) Urgent
Reason for Study: Chest Pain
Cardiac Monitoring- Treatment ONCE
EKG- Treatment ONCE
IV Insert/Care/Rem.- Treatment PRN
08/25/24 12:58
Complete Blood Count/With Diff Urgent
Comprehensive Metabolic Panel Urgent
08/25/24 13:40
0.9% Sodium Chloride 1000 ml [Nss] 1,000 ml IV BOLUS
CR Chest - 2 Views Urgent
Comment:
Reason For Exam: PNA, f/u, worsening symptoms
08/25/24 14:27
CT Chest Pe Study Urgent
Comment:
Reason For Exam: worsening lingular infiltrate/hemoptysis
08/25/24 18:42
Ketorolac [Toradol] 15 mg IV NOW STA
LevoFLOXacin 750 MG/150 ML [Levaquin] 750 mg in 150 ml IV NOW
Abnormal Lab Results
08/25/24
12:58
WBC 14.4 H 10^3/uL
(4.8-10.8)
Plt Count 525 H D 10^3/uL
(130-400)
Abs Immat Gran (auto) 0.1 H 10^3/uL
(0-0.05)
Absolute Neuts (auto) 11.1 H 10^3/uL
(1.4-6.5)
Absolute Monos (auto) 1.2 H 10^3/uL
(0.1-0.6)
Neutrophils % 77.2 H %
(42.2-75.2)
Lymphocytes % 9.5 L %
(20.5-51.1)
Glucose 168 H mg/dl
(70-99)
AST 48 H U/L
(14-36)
ALT 43 H U/L
(0-35)
08/25/24 12:58
08/25/24 12:58
Vital Signs
Initial and Last Documented VS:
Initial Vital Signs
Temp Pulse Resp BP Pulse Ox
97.9 F 92 16 129/81 97
08/25/24 11:31 08/25/24 11:31 08/25/24 11:31 08/25/24 11:31 08/25/24 11:31
Last Documented Vital Signs
Temp Pulse Resp BP Pulse Ox
97.9 F 85 40 132/78 95
08/25/24 11:31 08/25/24 18:15 08/25/24 18:15 08/25/24 18:00 08/25/24 18:15
<Leonard Arrington PA-C - Last Filed: 08/25/24 19:29>
Orders/Labs/Results
Orders:
Orders
08/25/24 12:50
Electrocardiogram (*1) Urgent
Reason for Study: Chest Pain
Cardiac Monitoring- Treatment ONCE
EKG- Treatment ONCE
IV Insert/Care/Rem.- Treatment PRN
08/25/24 12:58
Complete Blood Count/With Diff Urgent
Comprehensive Metabolic Panel Urgent
08/25/24 13:40
0.9% Sodium Chloride 1000 ml [Nss] 1,000 ml IV BOLUS
CR Chest - 2 Views Urgent
Comment:
Reason For Exam: PNA, f/u, worsening symptoms
08/25/24 14:27
CT Chest Pe Study Urgent
Comment:
Reason For Exam: worsening lingular infiltrate/hemoptysis
08/25/24 18:42
Ketorolac [Toradol] 15 mg IV NOW STA
LevoFLOXacin 750 MG/150 ML [Levaquin] 750 mg in 150 ml IV NOW
Abnormal Lab Results
08/25/24
12:58
WBC 14.4 H 10^3/uL
(4.8-10.8)
Plt Count 525 H D 10^3/uL
(130-400)
Abs Immat Gran (auto) 0.1 H 10^3/uL
(0-0.05)
Absolute Neuts (auto) 11.1 H 10^3/uL
(1.4-6.5)
Absolute Monos (auto) 1.2 H 10^3/uL
(0.1-0.6)
Neutrophils % 77.2 H %
(42.2-75.2)
Lymphocytes % 9.5 L %
(20.5-51.1)
Glucose 168 H mg/dl
(70-99)
AST 48 H U/L
(14-36)
ALT 43 H U/L
(0-35)
08/25/24 12:58
08/25/24 12:58
Vital Signs
Initial and Last Documented VS:
Initial Vital Signs
Temp Pulse Resp BP Pulse Ox
97.9 F 92 16 129/81 97
08/25/24 11:31 08/25/24 11:31 08/25/24 11:31 08/25/24 11:31 08/25/24 11:31
Last Documented Vital Signs
Temp Pulse Resp BP Pulse Ox
97.9 F 85 40 132/78 95
08/25/24 11:31 08/25/24 18:15 08/25/24 18:15 08/25/24 18:00 08/25/24 18:15
<Leonard Arrington PA-C - Last Filed: 08/25/24 19:29>
MDM/Problems Addressed
MDM/Problems Addressed:
PE study was obtained due to the patient's hemoptysis, this did not show evidence for PE however it is unclear whether her lung abnormalities represent a mass or pneumonia. Given the rapid worsening on chest x-ray I suspect there is at least some
component of pneumonia but with the hemoptysis and her prior tobacco use, lung malignancy remains high on the differential. Although she is clinically stable, consideration of failing outpatient management of pneumonia warrants admission for IV
antibiotics, empiric Levaquin given.
<Leonard Arrington PA-C - Last Filed: 08/25/24 19:29>
*Critical Care Note
Total Time (30-74mins, 75-104mins- exclusive of procedures): Not Applicable
ED Attending Note
<Zaina V. Day, PAINT BOOTH OPERATOR - Last Filed: 08/25/24 12:24>
-
Portions of this chart may have been created with voice recognition software.� Occasional wrong word or��sound alike� substitutions may have occurred due to the inherent limitations of voice recognition software.
Discharge Plan
Departure
Patient Disposition: Admit
Date of Disposition: 08/25/24
Time of Disposition: 19:14
Admit to: Med/Surg
Presentation/result/management discussed w/ accepting MD/DO: Hospitalist
Discharge Problem:
Cough with hemoptysis
Prescriptions:
No Action
atorvastatin 40 mg Tablet
40 mg PO HS
sertraline 100 mg Tablet
100 mg PO HS
amoxicillin-pot clavulanate [Augmentin] 500-125 mg tablet
1 tab PO BID Qty: 20 0RF
acetaminophen [Tylenol Extra Strength] 500 mg Tablet
1,000 mg PO Q6HPRN PRN (Reason: mild pain/fever)
Referrals:
Jeremy Montoya MD [Family Provider] -
Interventions
Interventions:
*Risk Screen - Suicide Last Done: 08/25/24 12:55
*General Assessment Last Done: 08/25/24 12:55
*Neglect/Abuse Screening Last Done: 08/25/24 12:55
ED- Fall Risk Assessment Last Done: 08/25/24 12:55
*ED COVID-19 Vaccine History Last Done: 08/25/24 12:55
ED- Cardiac Assessment Last Done: 08/25/24 12:55
ED- Pulmonary Assessment Last Done: 08/25/24 12:55
Discharge Date and Time
Print Language: RWANDAN
[2024-08-25 13:13] LABS: % Eosinophils 3.5 % (0-6); % Immature Granulocytes 0.5 % (0-0.5); % Lymphocytes 9.5 % (20.5-51.1); % Monocytes 8.3 % (1.7-9.3); % Neutrophils 77.2 % (42.2-75.2); Absolute Basophils 0.2 10^3/uL (0-0.2); Absolute Eosinophils 0.5 10^3/uL (0-0.7); Absolute Immature Granulocytes 0.1 10^3/uL (0-0.05); Absolute Lymphocytes 1.4 10^3/uL (1.2-3.4); Absolute Monocytes 1.2 10^3/uL (0.1-0.6); Absolute Neutrophils 11.1 10^3/uL (1.4-6.5); Hematocrit 39.8 % (37.0-47.0); Hemoglobin 13.5 g/dL (12.0-16.0); Mean Corp Hgb Conc. 33.9 g/dL (33.0-37.0); Mean Corpuscular Volume 91.3 fL (81.0-99.0); Mean Platelet Volume 9.8 fL (7.4-10.4); Nucleated Red Blood Cells % 0 %; Platelet Count 525 10^3/uL (130-400); Red Blood Cell Count 4.36 10^6/uL (4.20-5.40); Red Cell Dist. Width 12.6 % (11.5-14.5); White Blood Cell Count 14.4 10^3/uL (4.8-10.8)
[2024-08-25 13:27] LABS: ALT (SGPT) 43 U/L (0-35); AST (SGOT) 48 U/L (14-36); Albumin 3.6 g/dl (3.5-5.0); Alkaline Phosphatase 116 U/L (38-126); Blood Urea Nitrogen 15 mg/dl (7-17); Calcium 9.6 mg/dl (8.4-10.2); Carbon Dioxide 24 mmol/L (22-30); Chloride 100 mmol/L (98-107); Estimated Creatinine Clearance 69 ml/min; Glucose 168 mg/dl (70-99); Potassium 4.3 mmol/L (3.5-5.1); Sodium 137 mmol/L (135-145); Total Bilirubin 0.5 mg/dl (0.2-1.3); Total Protein 6.9 g/dl (6.3-8.2); eGFR > 60.00
[2024-08-25] MEDS: NSS 1000 IV (13:58)
--- NOTE | 2024-08-25 14:01 | EDRN ---
Pt showed this RN her mucous coughed up and it was bright red and bloody, not streaked. Pt given a spec container to cough up into.
--- NOTE | 2024-08-25 17:03 | EDRN ---
Pt asking to eat. This RN TT'd D. Murphy MALONE who said okay for pt to eat.
--- NOTE | 2024-08-25 17:35 | EDRN ---
Pt just returned from CT scan and administered a boxed lunch.
[2024-08-25] MEDS: TORADOL 15 MG IV (18:51)
[2024-08-25] MEDS: LEVAQUIN 150 IV (18:54)
--- NOTE | 2024-08-25 19:38 | HPS.HSE ---
Family Physician
-
Family Physician: Jeremy Montoya
Chief Complaint
-
Chest pain, shortness of breath and sweats
History of Present Illness
This is a 69-year-old female was past medical history of hyperlipidemia, depression/anxiety and longstanding smoking history who presents to the emergency department with recurrent episodes of blood-tinged productive cough, shortness of breath, and
chest pain with chills.
Patient has been battling symptoms for at least 2 weeks now. She reported that she initially developed blood-tinged productive cough and shortness of breath and was seen in urgent care. She was diagnosed with pneumonia at that time. She was
placed on doxycycline and improved after about 2 days of medications. However only thing today her symptoms worsened again. She came to the emergency department and was diagnosed with or pneumonia again. Patient underwent 2 days of IV antibiotics
and will transition to oral amoxicillin. She was discharged last week. Over the last 2 days patient reported development of blood-tinged cough again. But mostly she complained of worsening shortness of breath chills and sweats. She had no
fevers. She denied any history of immunosuppression. She has no history of recurrent pneumonias. She denied any recent travel. She has no known sick contacts.
During her last admission tested negative for COVID flu or Legionella.
In the emergency room today she was febrile, blood pressure was 132/78 and she was satting 97% on room air. ECG showed normal sinus rhythm at a rate of 88. She had a increased leukocytosis to 14,000 with rest of the CBC unremarkable. Chemistries
were unremarkable. She had a CT PE study which was negative for PE. There was extensive hilar mediastinal and left axillary adenopathy. There was adenopathy at the base of the neck on the right. Confluent adenopathy encircling the left pulmonary
artery as well as the proximal left upper lobe and left lower lobe pulmonary arteries, with extrinsic compression especially involving the left upper lobe pulmonary artery. There is also proximal left upper lobe and lingula bronchus stenosis, likely
contributing to postobstructive atelectasis and/or pneumonia in the lingula and to a lesser degree in the left upper lobe. Small left pleural effusion. Focal oblong soft tissue attenuation in the left perihilar region.
Medical History
Past Medical History
Past Medical History: Reports Hypercholesterolemia
Past Surgical History: Reports Gynocological
Social History
Tobacco: Smoker
Alcohol: None
Drug: None
Personal: Single
Living: Alone
Employment: Retired
Family History
Family History: Not pertinent
Allergies / Home Medications
Allergies reflects when Allergies were last updated in [employer].
Home Medications with original date entered in [employer]
Allergy/Medication List:
Allergies
Allergy/AdvReac Type Severity Reaction Status Date / Time
No Known Allergies Allergy Verified 08/19/24 13:45
Home Medications
atorvastatin 40 mg tablet 40 mg PO HS High Cholesterol 08/19/24
sertraline 100 mg tablet 100 mg PO HS depression/anxiety 08/19/24
amoxicillin 500 mg-potassium clavulanate 125 mg tablet (Augmentin) 1 tab PO BID #20 tabs 08/21/24
acetaminophen 500 mg tablet (Tylenol Extra Strength) 1,000 mg PO Q6HPRN PRN mild pain/fever 08/25/24
Review of Systems
-
Constitutional: Reports Night Sweats and Chills
EENT: Reports No Symptoms
Respiratory: Reports No Symptoms
Cardiac: Reports No Symptoms
Abdomen/GI: Reports No Symptoms
: Reports No Symptoms
Musculoskeletal: Reports No Symptoms
Skin: Reports No Symptoms
Neurological: Reports No Symptoms
Endocrine: Reports No Symptoms
Hematologic/Lymphatic: Reports No Symptoms
Psych: Reports No Symptoms
Physical Exam
Vital Signs
Vital Signs
Temp Pulse Resp BP Pulse Ox
98.3 F 85 40 132/78 95
08/25/24 19:36 08/25/24 18:15 08/25/24 18:15 08/25/24 18:00 08/25/24 18:15
Physical Exam
General: Well Developed, Well Nourished, Appears in Distress, Pain and Chills
HEENT: NormoCephalic, Anicteric, Moist mucous membranes and Atraumatic
Respiratory: Clear
Cardiac: S1/S2 and Regular Rhythm
Breast: Deferred by me
GI: Soft, Non Tender, Non Distended and Normal Bowel Sounds
Rectal: Deferred by Provider
Genito-urinary: Deferred by me
Musculoskeletal: No Clubbing, No Cyanosis and No Edema
Skin: Warm
Neuro: Awake, AO x 3 and Nonfocal/grossly intact
Psych: Calm
Laboratory Results
-
08/25/24 12:58
08/25/24 12:58
Laboratory Results
Total Bilirubin 0.5 mg/dl (0.2-1.3) 08/25/24 12:58
AST 48 U/L (14-36) H 08/25/24 12:58
ALT 43 U/L (0-35) H 08/25/24 12:58
Alkaline Phosphatase 116 U/L (38-126) 08/25/24 12:58
Data Reviewed
-
CT Scan: Report Reviewed by me
Medical Tests (Nuc Med, Echo, EKG etc): Image Personally Visualized and interpreted
Lab Data: Labs Reviewed by me
Old Records: Reviewed
Impression/Plan
-
IMPRESSION:
69-year-old female who now has approximately 2 weeks of productive cough with scant hemoptysis with current imaging now showing likely postobstructive atelectasis or pneumonia in the lingula and there is lesser degree in the left upper lobe, left
upper lobe and lingula bronchus stenosis likely from extrinsic compression, extrinsic compression involving the left upper lobe pulmonary artery secondary to complex adenopathy encircling the left mammary artery as well as the proximal left upper
lobe and left lower lobe pulmonary arteries with extensive hilar mediastinal and axillary adenopathy.
PLAN:
1. EDSON consolidation and adenopathy - Pneumonia with reactive adenopathy vs post obstructive pneumonia secondary to pneumonia or lung Ca. Scant hemoptysis with mucus. HD stable. Afebrile. Satting 97% at rest. Uncomfortable.
- admit to med/surg
- sputum cultures, stain and cytology
- continue levaquin for now
- pain control
- Pulmonary consult for possible bronch
DVT PPX - lovenox sq
Code status - DNR
--- NOTE | 2024-08-25 21:30 | PTCARENOTE ---
Patient admitted from the ED. Patient ambulated into room. Patient AAOX3. Patient is able to independently state needs. Call hernandez within reach. Complains of 8/10 LUQ abdomen pain. Will continue with current plan.
[2024-08-25] MEDS: LIPITOR 40 MG PO (22:21)
[2024-08-25] MEDS: DILAUDID 0.5 MG IV (22:22)
[2024-08-25] MEDS: ZOLOFT 100 MG PO (22:22)
[2024-08-25] MEDS: COMPAZINE 5 MG IV (23:16)
[2024-08-25] MEDS: TORADOL 10 MG IV (23:24)
[2024-08-26 07:00] VITALS: BP 139/86
[2024-08-26 07:32] LABS: Hematocrit 39.7 % (37.0-47.0); Mean Corp Hgb Conc. 32.7 g/dL (33.0-37.0); Mean Corpuscular Hgb 31.1 pg (27.0-31.0); Mean Platelet Volume 10.1 fL (7.4-10.4); Platelet Count 553 10^3/uL (130-400); Red Blood Cell Count 4.18 10^6/uL (4.20-5.40); Red Cell Dist. Width 12.5 % (11.5-14.5); White Blood Cell Count 9.8 10^3/uL (4.8-10.8)
[2024-08-26 08:10] LABS: Blood Urea Nitrogen 15 mg/dl (7-17); Calcium 9.3 mg/dl (8.4-10.2); Carbon Dioxide 28 mmol/L (22-30); Chloride 101 mmol/L (98-107); Estimated Creatinine Clearance 79 ml/min; Glucose 93 mg/dl (70-99); Magnesium 2.3 mg/dl (1.6-2.3); Potassium 4.9 mmol/L (3.5-5.1); Sodium 139 mmol/L (135-145); eGFR > 60.00
[2024-08-26] MEDS: TYLENOL 650 MG PO ×2 (08:13→21:14)
--- NOTE | 2024-08-26 10:51 | W.PN.HOSP.TC ---
Today's Communication/Plan
-
see A/P
Assessment / Plan
Assessment / Plan
HPI: 69-year-old female with PMH hyperlipidemia, depression/anxiety and longstanding smoking history who presented with recurrent episodes of blood-tinged productive cough, shortness of breath, chest pain with chills. 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
She initially developed blood-tinged productive cough and shortness of breath and was seen in urgent care. She was diagnosed with pneumonia at that time. She was placed on doxycycline and improved after about 2 days of medications. However her
symptoms then worsened. She came to the emergency department and was diagnosed with pneumonia again. Patient underwent 2 days of IV antibiotics and will transition to oral amoxicillin. She was discharged the week prior.
Over the last 2 days, patient reported development of blood-tinged cough again. But mostly complained of worsening shortness of breath, chills and sweats. She had no fevers. She denied any history of immunosuppression. She has no history of
recurrent pneumonias. She denied any recent travel. She has no known sick contacts.
In the ED, she was febrile with increased leukocytosis to 14,000. She had a CT PE study which was negative for PE but noted extensive hilar mediastinal and left axillary adenopathy with likely postobstructive atelectasis and/or pneumonia in the
lingula and to a lesser degree in the left upper lobe.
CT PE:
No evidence of pulmonary embolism.
Extensive hilar, mediastinal, and left axillary adenopathy. There may also be adenopathy at the base of neck on the right. Confluent adenopathy encircling the left pulmonary artery as well as the proximal left upper lobe and left lower lobe
pulmonary arteries, with extrinsic compression especially involving the left upper lobe pulmonary artery. There is also proximal left upper lobe and lingula bronchus stenosis, likely contributing to postobstructive atelectasis and/or pneumonia in
the lingula and to a lesser degree in the left upper lobe. Small left pleural effusion. Focal oblong soft tissue attenuation in the left perihilar region. This could represent focal consolidation or mass, such as primary pulmonary neoplasm.
A/P:
# EDSON consolidation and adenopathy, with likely post obstructive pneumonia
# Long smoking history with concern of lung Ca.
Monitor scant hemoptysis
Follow sputum cultures, stain and cytology
continue Levaquin for now
pain control
Pulmonary consult for possible bronch
# Possible liver mets noted on CT PE
Check dedicated CT AP and CT head for staging
Onc CS
# Suspect reactive mild transaminitis
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
Monitor LFT
# Hyperlipidemia
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
# Anxiety
Continue sertraline
DVT prophylaxis: SCD this time due to scant hemoptysis
code status: FULL CODE
total time spent 51 min
Anticipated Discharge: > 48 hours
Subjective/Interval History
-
Date of Service: August 26, 2024
Objective Data
-
Labs:
Laboratory Results
08/26/24
06:19
WBC 9.8
Hgb 13.0
Hct 39.7
Plt Count 553 H
Sodium 139
Potassium 4.9
Chloride 101
Carbon Dioxide 28
BUN 15
Creatinine 0.6
Glucose 93
Calcium 9.3
Vital Signs:
Vital Signs
Temp Pulse Resp BP Pulse Ox
36.7 C 81 18 139/86 94
08/26/24 07:00 08/26/24 07:00 08/26/24 07:00 08/26/24 07:00 08/26/24 07:00
I&O
08/25/24 08/26/24 08/27/24
06:59 06:59 06:59
Intake Total 240 / 240
Balance 240 / 240
Review of Systems
-
Respiratory: Reports Hemoptysis (mild, blood tinged)
Physical Exam
-
General: Well Developed, Well Nourished, No Apparent Distress, Comfortable and Conversant
HEENT: Normocephalic and Atraumatic
Respiratory: Clear to Auscultation and Non Labored Respirations; Negative Accessory Resp Muscle Use
Cardiac: Regular Rhythm and S1/S2
GI: Soft, Nontender, Nondistended and Normal Bowel Sounds
Musculoskeletal: No Clubbing, No Cyanosis and No Edema
Skin: Warm and Dry
Neuro: Awake and Alert
Psych: Calm and Intact Judgement/Insight
Data Reviewed
-
CT Scan: Image personally visualized and interpreted and Report Reviewed by me
Labs: Labs Reviewed by me
--- NOTE | 2024-08-26 11:37 | CON.PUL ---
Consultation
Consultation Request
Date/Time Consultation Requested: 08/26/2024
Date/Time Consultation Performed: 08/26/2024
Requesting Provider: Dr. King
Performing Provider: Dr. Misael Rowell
Reason for Consultation: Hemoptysis/abnormal CT chest
Medical History
-
History of Present Illness:
69-year-old woman with past medical history significant for hyperlipidemia, depression/anxiety, longstanding smoking history with percent to the emergency department with recurrent episode of blood-tinged sputum, productive cough, shortness of
breath and chest pain with chills.
Patient reports symptoms for the last 2 weeks.
She went to urgent care, diagnosed with pneumonia. Given antibiotics despite doxycycline symptoms worsen. Came to the emergency room and diagnosed with pneumonia. She was discharged last week 08/21/2024 after 2 days of IV antibiotics.
Past Medical History
Past Medical History: Other (See assessment and plan section)
Social History
Tobacco: Smoker
Alcohol: None
Family History
Family History: Reviewed & Not Pertinent
Allergies / Home Medications
Allergies
Allergy/AdvReac Type Severity Reaction Status Date / Time
No Known Allergies Allergy Verified 08/19/24 13:45
Home Medications
�Medication �Instructions �Recorded �Confirmed �Last Taken �Type
atorvastatin 40 mg tablet 40 mg PO HS High Cholesterol 08/19/24 08/25/24 08/24/24 History
sertraline 100 mg tablet 100 mg PO HS depression/anxiety 08/19/24 08/25/24 08/24/24 History
amoxicillin 500 mg-potassium 1 tab PO BID #20 tabs 08/21/24 08/25/24 08/25/24 Rx
clavulanate 125 mg tablet
(Augmentin)
acetaminophen 500 mg tablet 1,000 mg PO Q6HPRN PRN mild 08/25/24 08/25/24 08/25/24 History
(Tylenol Extra Strength) pain/fever
Review of Systems
-
History Source: Patient
All other systems: Negative unless noted
Vitals / Labs / Diagnostic Testing
Vital Signs
Temp Pulse Resp BP Pulse Ox
98.0 F 81 18 139/86 97
08/26/24 07:00 08/26/24 07:00 08/26/24 07:00 08/26/24 07:00 08/26/24 07:40
Lab Data
08/26/24 06:19
08/26/24 06:19
Microbiology
08/26/24 08:19 Mouth/Oral Cavity Respiratory Culture - Final
08/26/24 08:19 Mouth/Oral Cavity Gram Stain - Final
Diagnostic Testing:
Physical Exam
-
HEENT: Normocephalic
Cardiovascular: S1/S2
Respiratory: Clear and Non-Labored Respirations
GI: Non Distended
Neurology: Awake, Alert, AO x 3 and No Motor Deficits
Skin: Warm
General: Comfortable
Assessment
-
69-year-old woman who is a daily smoker, has been complaining of cough, shortness of breath, phlegm production for 2 weeks. Initially went to the urgent care center. Treated with oral antibiotics. Subsequently admitted to the hospital for 24
hours with IV antibiotics. Discharged on oral antibiotics. Returns after 48 hours complaining of worsening symptoms with mild hemoptysis. CT chest was performed and showed abnormal findings suggestive of possible lung cancer.
Cough/hemoptysis.
Postobstructive pneumonia
Abnormal CT chest: Reviewed,-suspect malignancy
No evidence of pulmonary embolism.
Extensive hilar, mediastinal, and left axillary adenopathy. There may also be adenopathy at the base of neck on the right. Confluent adenopathy encircling the left pulmonary artery as well as the proximal left upper lobe and left lower lobe
pulmonary arteries, with extrinsic compression especially involving the left upper lobe pulmonary artery. There is also proximal left upper lobe and lingula bronchus stenosis, likely contributing to postobstructive atelectasis and/or pneumonia in
the lingula and to a lesser degree in the left upper lobe. Small left pleural effusion. Focal oblong soft tissue attenuation in the left perihilar region. This could represent focal consolidation or mass, such as primary pulmonary neoplasm.
Conditions present prior admission:
Hyperlipidemia
Anxiety
Tobacco abuse
Assessment and plan:
CT scan finding highly suggestive of lung cancer, possibly metastatic to cervical and left axillary lymph nodes.
Likely component of postobstructive pneumonia as well.
On exam no palpable axillary or cervical lymph nodes.
-
Agree with antibiotics and complete total of 7 days.
Monitor for hemoptysis, currently mild
Appears nontoxic
Not requiring oxygen supplementation
Was able to ambulate to the restroom without shortness of breath
-
Will need tissue biopsy, either with ultrasound-guided needle aspiration via bronchoscopy.
Will discuss with Dr. Pratt/Dr. Thakur for timing.
If no timing available this week may need to perform next week as an outpatient setting.
I discussed this with the patient and she is agreeable if she needs to come back.
For now we will treat her pneumonia.
-
Smoking cessation strongly encouraged
She will need outpatient pulmonary follow-up, information will be left in the chart
[2024-08-26] MEDS: NSS 250 IV ×2 (12:04→17:28)
[2024-08-26] MEDS: OMNIPAQUE 50 ML PO (12:04)
[2024-08-26 15:00] VITALS: BP 148/82
--- NOTE | 2024-08-26 16:15 | CM ---
manager of human resources reviewed patient's chart and met with patient and patient lives alone in a 2 story condo. Patient is independent with adl's and ambulation, no dme, patient drives, home when stable no needs.
PCP: Dr. Montoya
Pharmacy: [facility] in [place]
Plan; Home when stable, no needs.
[2024-08-26] MEDS: LEVAQUIN 150 IV (21:11)
[2024-08-26] MEDS: ZOLOFT 100 MG PO (21:15)
[2024-08-26] MEDS: MORPHINE SULFATE 1 MG IV (22:11)
[2024-08-26 23:05] VITALS: BP 138/82
--- NOTE | 2024-08-27 06:15 | DOWNTIME ---
There was a [employer] Client Project Manager/Team Coach Downtime on 08/27/2024 from 0100 to 08/27/2024 at 0350. Downtime documentation of patient's care, including medication administrations, has been reconciled in the electronic record per guidelines. Refer to the
patient's paper chart under the miscellaneous tab to see printed paper medication records and downtime forms.
[2024-08-27 07:37] VITALS: BP 127/75
[2024-08-27 08:31] LABS: % Basophils 0.9 % (0-2); % Eosinophils 4.7 % (0-6); % Immature Granulocytes 0.4 % (0-0.5); % Lymphocytes 8.7 % (20.5-51.1); % Monocytes 7.3 % (1.7-9.3); Absolute Basophils 0.1 10^3/uL (0-0.2); Absolute Eosinophils 0.4 10^3/uL (0-0.7); Absolute Lymphocytes 0.8 10^3/uL (1.2-3.4); Absolute Monocytes 0.7 10^3/uL (0.1-0.6); Absolute Neutrophils 7.1 10^3/uL (1.4-6.5); Hematocrit 38.2 % (37.0-47.0); Hemoglobin 12.8 g/dL (12.0-16.0); Mean Corp Hgb Conc. 33.5 g/dL (33.0-37.0); Mean Corpuscular Hgb 31.4 pg (27.0-31.0); Mean Corpuscular Volume 93.9 fL (81.0-99.0); Mean Platelet Volume 9.7 fL (7.4-10.4); Nucleated Red Blood Cells % 0 %; Platelet Count 554 10^3/uL (130-400); Red Blood Cell Count 4.07 10^6/uL (4.20-5.40); Red Cell Dist. Width 12.6 % (11.5-14.5); White Blood Cell Count 9.2 10^3/uL (4.8-10.8)
[2024-08-27] MEDS: TYLENOL 650 MG PO (08:45)
--- NOTE | 2024-08-27 10:51 | W.PN.HOSP.TC ---
Addendum entered and electronically signed by Yecenia Barnhart MD 08/27/24 11:44:
# Significant increase in LFT noted,
CT AP from yesterday 08/26 did not show any significant liver pathology
Hold further Tylenol
Change Levaquin to Ceftriaxone and Flagyl
DEE RN
Original Note:
Today's Communication/Plan
-
see A/P
Assessment / Plan
Assessment / Plan
HPI: 69-year-old female with PMH hyperlipidemia, depression/anxiety and longstanding smoking history who presented with recurrent episodes of blood-tinged productive cough, shortness of breath, chest pain with chills. Symptoms started 2 weeks BACK TUFTER.
She initially developed blood-tinged productive cough and shortness of breath and was seen in urgent care. She was diagnosed with pneumonia at that time. She was placed on doxycycline and improved after about 2 days of medications. However her
symptoms then worsened. She came to the emergency department and was diagnosed with pneumonia again. Patient underwent 2 days of IV antibiotics and will transition to oral amoxicillin. She was discharged the week prior.
Over the last 2 days, patient reported development of blood-tinged cough again. But mostly complained of worsening shortness of breath, chills and sweats. She had no fevers. She denied any history of immunosuppression. She has no history of
recurrent pneumonias. She denied any recent travel. She has no known sick contacts.
In the ED, she was febrile with increased leukocytosis to 14,000. She had a CT PE study which was negative for PE but noted extensive hilar mediastinal and left axillary adenopathy with likely postobstructive atelectasis and/or pneumonia in the
lingula and to a lesser degree in the left upper lobe.
CT PE:
No evidence of pulmonary embolism.
Extensive hilar, mediastinal, and left axillary adenopathy. There may also be adenopathy at the base of neck on the right. Confluent adenopathy encircling the left pulmonary artery as well as the proximal left upper lobe and left lower lobe
pulmonary arteries, with extrinsic compression especially involving the left upper lobe pulmonary artery. There is also proximal left upper lobe and lingula bronchus stenosis, likely contributing to postobstructive atelectasis and/or pneumonia in
the lingula and to a lesser degree in the left upper lobe. Small left pleural effusion. Focal oblong soft tissue attenuation in the left perihilar region. This could represent focal consolidation or mass, such as primary pulmonary neoplasm.
A/P:
# EDSON consolidation and adenopathy, with likely post obstructive pneumonia
# Long smoking history with concern of lung Ca.
Monitor scant hemoptysis
sputum cultures over contaminated
continue Levaquin total 7 days
pain control
Pulmonary on board, planning either ultrasound-guided needle aspiration via bronchoscopy. Timing TBD
# Liver mets ruled out on CT AP
No need for onc CS at this time
# Incidental finding of left frontal lobe 4 mm cortical enhancement, ddx include prominent cortical vein however metastasis can appear similar.
Check MRI brain
# Suspect reactive mild transaminitis
Hold BACK TUFTER statin
Monitor LFT
# Hyperlipidemia
Hold BACK TUFTER statin
# Anxiety
Continue sertraline
DVT prophylaxis: SCD this time due to scant hemoptysis
code status: FULL CODE
Anticipated Discharge: 24 - 48 hours
Subjective/Interval History
-
Date of Service: August 27, 2024
Objective Data
-
Labs:
Laboratory Results
08/27/24
08:12
WBC 9.2
Hgb 12.8
Hct 38.2
Plt Count 554 H
Sodium Pending
Potassium Pending
Chloride Pending
Carbon Dioxide Pending
BUN Pending
Creatinine Pending
Glucose Pending
Calcium Pending
Total Bilirubin Pending
AST Pending
ALT Pending
Alkaline Phosphatase Pending
Vital Signs:
Vital Signs
Temp Pulse Resp BP Pulse Ox
36.6 C 77 20 127/75 95
08/27/24 07:37 08/27/24 07:37 08/27/24 07:37 08/27/24 07:37 08/27/24 07:37
I&O
08/26/24 08/27/24 08/28/24
06:59 06:59 06:59
Intake Total 240 / 240 1620 / 1620
Balance 240 / 240 1620 / 1620
Review of Systems
-
Respiratory: Reports Hemoptysis (mild, blood tinged)
Physical Exam
-
General: Well Developed, Well Nourished, No Apparent Distress, Comfortable and Conversant
HEENT: Normocephalic and Atraumatic
Respiratory: Clear to Auscultation and Non Labored Respirations; Negative Accessory Resp Muscle Use
Cardiac: Regular Rhythm and S1/S2
GI: Soft, Nontender, Nondistended and Normal Bowel Sounds
Musculoskeletal: No Clubbing, No Cyanosis and No Edema
Skin: Warm and Dry
Neuro: Awake and Alert
Psych: Calm and Intact Judgement/Insight
Data Reviewed
-
CT Scan: Image personally visualized and interpreted, Report Reviewed by me and Discussed with Patient
Labs: Labs Reviewed by me
[2024-08-27 11:18] LABS: ALT (SGPT) 606 U/L (0-35); Albumin 3.3 g/dl (3.5-5.0); Alkaline Phosphatase 372 U/L (38-126); Blood Urea Nitrogen 11 mg/dl (7-17); Carbon Dioxide 27 mmol/L (22-30); Chloride 102 mmol/L (98-107); Direct Bilirubin 0.2 mg/dl (0.0-0.4); Estimated Creatinine Clearance 68 ml/min; Glucose 93 mg/dl (70-99); Magnesium 2.1 mg/dl (1.6-2.3); Potassium 5.1 mmol/L (3.5-5.1); Sodium 139 mmol/L (135-145); Total Bilirubin 0.5 mg/dl (0.2-1.3); Total Protein 6.4 g/dl (6.3-8.2); eGFR > 60.00
--- NOTE | 2024-08-27 11:43 | W.PN.PUL3 ---
Today's Communication / Plan
-
Continue antibiotics-complete- 7-day
For MRI of the brain-inpatient versus outpatient.
From my perspective okay to discharge
My office will schedule outpatient bronchoscopy with endobronchial ultrasound likely next week.
Assessment
-
69-year-old woman who is a daily smoker, has been complaining of cough, shortness of breath, phlegm production for 2 weeks. Initially went to the urgent care center. Treated with oral antibiotics. Subsequently admitted to the hospital for 24
hours with IV antibiotics. Discharged on oral antibiotics. Returns after 48 hours complaining of worsening symptoms with mild hemoptysis. CT chest was performed and showed abnormal findings suggestive of possible lung cancer.
Cough/hemoptysis.
Postobstructive pneumonia
Abnormal CT chest: Reviewed,-suspect malignancy
No evidence of pulmonary embolism.
Extensive hilar, mediastinal, and left axillary adenopathy. There may also be adenopathy at the base of neck on the right. Confluent adenopathy encircling the left pulmonary artery as well as the proximal left upper lobe and left lower lobe
pulmonary arteries, with extrinsic compression especially involving the left upper lobe pulmonary artery. There is also proximal left upper lobe and lingula bronchus stenosis, likely contributing to postobstructive atelectasis and/or pneumonia in
the lingula and to a lesser degree in the left upper lobe. Small left pleural effusion. Focal oblong soft tissue attenuation in the left perihilar region. This could represent focal consolidation or mass, such as primary pulmonary neoplasm.
Conditions present prior admission:
Hyperlipidemia
Anxiety
Tobacco abuse
Assessment and plan:
CT scan finding highly suggestive of lung cancer, possibly metastatic to cervical and left axillary lymph nodes.
Likely component of postobstructive pneumonia as well.
On exam no palpable axillary or cervical lymph nodes.
CT abdomen pelvis negative for metastatic disease
CT brain noted with possible brain mets-for MRI.
-
Agree with antibiotics and complete total of 7 days.
Monitor for hemoptysis, currently mild
Appears nontoxic
Not requiring oxygen supplementation
Was able to ambulate to the restroom without shortness of breath
-
Will need tissue biopsy, either with ultrasound-guided needle aspiration via bronchoscopy.
Will discuss with Dr. Pratt/Dr. Thakur: Case discussed, unfortunately not slots available for procedure this week. Will schedule in the outpatient setting in the next week or so, my office will arrange.
I personally discussed with patient in detail and she is agreeable.
-
Smoking cessation strongly encouraged
-
From the pulmonary perspective okay to discharge. Patient instructed to call my office if there is any issues, my office will call her to schedule elective bronchoscopy with endobronchial ultrasound guidance/needle aspiration of lymph node/mass.
If hemoptysis worsen in the interim then we will need to proceed airway inspection sooner.
She will need outpatient pulmonary follow-up, information will be left in the chart.
Subjective Data
-
Date of Service:
Date of Service: August 27, 2024
Chief Complaint: Pulmonary Follow Up (Abnormal CT chest/pneumonia)
Subjective:
No new complaints
Denies worsening hemoptysis
Denies any chest pain
Review of Systems
General: Fever (n)
Cardiopulmonary: Dyspnea (none at rest)
GI: Abdominal Pain (n) and Nausea (n)
Neuro: Headache (n)
Objective Data
Data Reviewed
Vital Signs / I&O / Oxygen:
Vital Signs
Temp Pulse Resp BP Pulse Ox
97.8 F 77 20 127/75 95
08/27/24 07:37 08/27/24 07:37 08/27/24 07:37 08/27/24 07:37 08/27/24 07:37
Intake and Output
08/26/24 08/27/24 08/28/24
06:59 06:59 06:59
Intake Total 240 / 240 1620 / 1620
Balance 240 / 240 1620 / 1620
SaO2 95
Physical Exam
General: Comfortable
HEENT: Normocephalic
Cardiovascular: S1-S2
Respiratory: Clear and Non-Labored Respirations
GI: Non Distended
Neurology: Awake, Alert and No Motor Deficits
Skin: Warm
Labs/Micro/Reports
Lab Data
08/27/24 08:12
08/27/24 08:12
Microbiology
08/26/24 08:19 Mouth/Oral Cavity Respiratory Culture - Final
08/26/24 08:19 Mouth/Oral Cavity Gram Stain - Final
[2024-08-27 11:47] LABS: AST (SGOT) 812 U/L (14-36)
[2024-08-27] MEDS: LIDOCAINE 4% PATCH 1 PATCH TOPICAL (11:58)
[2024-08-27] MEDS: ROCEPHIN 1000 MG IV (12:32)
[2024-08-27] MEDS: FLAGYL 750 MG 150 IV ×2 (12:32→20:28)
[2024-08-27] MEDS: STERILE WATER FOR INJECTION 10 ML IV (12:32)
--- NOTE | 2024-08-27 12:42 | CM ---
manager business intelligence reviewed patient's chart and plan is to home when stable, no needs.
Plan; Home no needs when stable.
[2024-08-27 15:31] VITALS: BP 116/73
[2024-08-27] MEDS: ZOLOFT 100 MG PO (21:40)
[2024-08-27 23:10] VITALS: BP 114/69
[2024-08-28] MEDS: FLAGYL 750 MG 150 IV ×3 (04:47→19:51)
[2024-08-28 07:29] VITALS: BP 131/79
[2024-08-28 07:53] LABS: % Basophils 1.2 % (0-2); % Eosinophils 6.7 % (0-6); % Immature Granulocytes 0.6 % (0-0.5); % Lymphocytes 14.5 % (20.5-51.1); % Monocytes 8.2 % (1.7-9.3); % Neutrophils 68.8 % (42.2-75.2); Absolute Basophils 0.1 10^3/uL (0-0.2); Absolute Eosinophils 0.7 10^3/uL (0-0.7); Absolute Immature Granulocytes 0.1 10^3/uL (0-0.05); Absolute Lymphocytes 1.5 10^3/uL (1.2-3.4); Absolute Monocytes 0.8 10^3/uL (0.1-0.6); Hematocrit 37.5 % (37.0-47.0); Hemoglobin 12.3 g/dL (12.0-16.0); Mean Corp Hgb Conc. 32.8 g/dL (33.0-37.0); Mean Corpuscular Hgb 30.9 pg (27.0-31.0); Mean Corpuscular Volume 94.2 fL (81.0-99.0); Mean Platelet Volume 9.9 fL (7.4-10.4); Nucleated Red Blood Cells % 0 %; Platelet Count 580 10^3/uL (130-400); Red Blood Cell Count 3.98 10^6/uL (4.20-5.40); Red Cell Dist. Width 12.5 % (11.5-14.5); White Blood Cell Count 10.1 10^3/uL (4.8-10.8)
[2024-08-28 08:12] LABS: ALT (SGPT) 359 U/L (0-35); AST (SGOT) 236 U/L (14-36); Albumin 3.2 g/dl (3.5-5.0); Alkaline Phosphatase 304 U/L (38-126); Blood Urea Nitrogen 12 mg/dl (7-17); Carbon Dioxide 24 mmol/L (22-30); Chloride 104 mmol/L (98-107); Direct Bilirubin 0.2 mg/dl (0.0-0.4); Estimated Creatinine Clearance 79 ml/min; Glucose 95 mg/dl (70-99); Magnesium 2.1 mg/dl (1.6-2.3); Sodium 140 mmol/L (135-145); Total Bilirubin 0.4 mg/dl (0.2-1.3); Total Protein 6.2 g/dl (6.3-8.2); eGFR > 60.00
--- NOTE | 2024-08-28 09:09 | CON.ONC ---
Impression
Impression
Clinical and radiologic findings suggestive of advanced lung carcinoma with postobstructive pneumonia
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
CVA
Plan
Plan
Tissue diagnosis is necessary to outline appropriate therapy
Bronchoscopy for biopsy- IHC, PDL and NGS testing pending tissue type
Await results
Outpatient PET CT scan
Caution with ASA timing, patient anxious to move for biopsy earlier if possible
Generating reviewed therapeutic interventions for advanced lung cancer including chemotherapy, immunotherapy, targeted therapy and radiation therapy (gamma knife evaluation)
Will follow
Patient History
History of Present Illness
69-year-old woman who is a daily smoker, has been complaining of cough, shortness of breath, phlegm production for 2 weeks. She was treated with outpatient antibiotics but developed worsening cough with hemoptysis. Presented to the emergency room
when a CT scan was performed which showed significant abnormalities as follows: There was adenopathy at the base of the neck on the right. Confluent adenopathy encircling the left pulmonary artery as well as the proximal left upper lobe and left
lower lobe pulmonary arteries, with extrinsic compression especially involving the left upper lobe pulmonary artery. There is also proximal left upper lobe and lingula bronchus stenosis, likely contributing to postobstructive atelectasis and/or
pneumonia in the lingula and to a lesser degree in the left upper lobe. Small left pleural effusion. Focal oblong soft tissue attenuation in the left perihilar region.Based on change in mental status that had suspicion for non-small cell lung
carcinoma additional imaging was performed including MRI of the brain: There are numerous small enhancing foci which measure up to 4 mm within the left frontal and left occipital lobes which likely represent intracranial metastasis. Some of these
demonstrate a small amount of surrounding T2/FLAIR hyperintense signal which likely represents trace edema.
Medical History
Past Medical History
Past Medical History: Reports Hypercholesterolemia
Past Surgical History: Reports Gynocological
Social History
Tobacco: Smoker
Alcohol: None
Drug: None
Personal: Single
Living: Alone
Employment: Retired
Family History
Family History: Not pertinent
Allergies / Home Medications
Allergies reflects when Allergies were last updated in [employer].
Home Medications with original date entered in [employer]
Allergy/Medication List:
Allergies
Allergy/AdvReac Type Severity Reaction Status Date / Time
No Known Allergies Allergy Verified 08/19/24 13:45
cc:
Past-Medical/Surgical History
Past Medical History
Hypercholesterolemia
Past Surgical History:
Gynocological
Social History:
Tobacco: Smoker
Alcohol: None
Drug: None
Personal: Single
Living: Alone
Employment: Retired
Family History:
AUTOMOTIVE PARTS PERSON
Patient Medication
�Medication �Instructions �Recorded �Confirmed �Last Taken �Type
atorvastatin 40 mg tablet 40 mg PO HS High Cholesterol 08/19/24 08/25/24 08/24/24 History
sertraline 100 mg tablet 100 mg PO HS depression/anxiety 08/19/24 08/25/24 08/24/24 History
amoxicillin 500 mg-potassium 1 tab PO BID #20 tabs 08/21/24 08/25/24 08/25/24 Rx
clavulanate 125 mg tablet
(Augmentin)
acetaminophen 500 mg tablet 1,000 mg PO Q6HPRN PRN mild 08/25/24 08/25/24 08/25/24 History
(Tylenol Extra Strength) pain/fever
Active Medications
Generic Name Dose Route Start Last Admin
Trade Name Freq PRN Reason Stop Dose Admin
Acetaminophen 650 mg 08/25/24 20:55 08/27/24 08:45
Acetaminophen 325 Mg Tablet PO 09/22/24 20:54 650 mg
Q4HPRN PRN Administration
mild pain/VALVERDE/temp> 100.4F
Albuterol/Ipratropium 3 ml 08/25/24 20:55
Ipratropium 0.5/Albuterol 3 Mg (3 Ml Ampul) INH
R Q4HPRN PRN
shortness of breath
Protocol
Bisacodyl 10 mg 08/25/24 20:55
Bisacodyl 10 Mg Rectal Suppository RECTAL 09/22/24 20:54
[id number] PRN
constipation
Ceftriaxone Sodium 1,000 mg 08/27/24 12:00 08/27/24 12:32
Ceftriaxone 1000 Mg / 10 Ml Vial IV 1,000 mg
Q24H JESSE Administration
Guaifenesin/Dextromethorphan 5 ml 08/25/24 20:55
Guaifenesin/Dextromethorphan 200 Mg/10 Ml Cup PO 09/22/24 20:54
Q6HPRN PRN
cough
Metronidazole 150 mls @ 150 mls/hr 08/27/24 12:00 08/28/24 04:47
Flagyl 750 Mg IV 150 mls
Q8H JESSE Administration
Lidocaine 1 patch 08/27/24 11:45 08/27/24 11:58
Lidocaine 4% Topical Patch TOPICAL 09/24/24 11:44 1 patch
DAILY JESSE Administration
Protocol
Morphine Sulfate 1 mg 08/26/24 11:20 08/26/24 22:11
Morphine 2 Mg/Ml Syringe IV 09/09/24 11:19 1 mg
Q4HPRN PRN Administration
mod pain
Patch Removal 1 patch 08/27/24 20:00 08/27/24 20:31
Remove Lidocaine Patch REMOVE 09/24/24 19:59 1 patch
DAILY@2000 JESSE Administration
Polyethylene Glycol 17 grams 08/25/24 20:55
Polyethylene Glycol Powder 17 Grams Packet PO 09/22/24 20:54
DAILYPRN PRN
constipation
Senna/Docusate Sodium 1 tablet 08/25/24 20:55
Docusate W/Senna (Karolyn-Colace) Tablet PO 09/22/24 20:54
BIDPRN PRN
constipation
Sertraline HCl 100 mg 08/25/24 22:00 08/27/24 21:40
Sertraline 100 Mg Tablet PO 09/22/24 21:59 100 mg
HS JESSE Administration
Sodium Chloride 0 flush 08/25/24 21:00
Sodium Chloride 0.9% (Flush) Syringe IV 09/22/24 20:59
PER PROTOCOL JESSE
Sterile Water 10 ml 08/27/24 12:00 08/27/24 12:32
Sterile Water For Injection 10 Ml Vial IV 09/24/24 11:59 10 ml
DAILY@1200 JESSE Administration
Review of Systems
-
12 point review fails to elicit additional complaints other than those reviewed in HPI.
Physical Exam
-
Physical Exam
General: No distress
HEENT: Normocephalic, no scleral icterus
Cardiovascular: reg, S1-S2
Respiratory: Clear and Non-Labored Respirations
GI: ND, NT
Neurology: Awake, Alert and nonfocal
Skin: Warm
Labs
Lab Results
WBC 10.1 10^3/uL (4.8-10.8) 08/28/24 06:44
RBC 3.98 10^6/uL (4.20-5.40) L 08/28/24 06:44
Hgb 12.3 g/dL (12.0-16.0) 08/28/24 06:44
Hct 37.5 % (37.0-47.0) 08/28/24 06:44
MCV 94.2 fL (81.0-99.0) 08/28/24 06:44
MCH 30.9 pg (27.0-31.0) 08/28/24 06:44
MCHC 32.8 g/dL (33.0-37.0) L 08/28/24 06:44
RDW 12.5 % (11.5-14.5) 08/28/24 06:44
Plt Count 580 10^3/uL (130-400) H 08/28/24 06:44
MPV 9.9 fL (7.4-10.4) 08/28/24 06:44
Abs Immat Gran (auto) 0.1 10^3/uL (0-0.05) H 08/28/24 06:44
Absolute Neuts (auto) 7.0 10^3/uL (1.4-6.5) H 08/28/24 06:44
Absolute Lymphs (auto) 1.5 10^3/uL (1.2-3.4) 08/28/24 06:44
Absolute Monos (auto) 0.8 10^3/uL (0.1-0.6) H 08/28/24 06:44
Absolute Eos (auto) 0.7 10^3/uL (0-0.7) 08/28/24 06:44
Absolute Basos (auto) 0.1 10^3/uL (0-0.2) 08/28/24 06:44
Immature Gran % 0.6 % (0-0.5) H 08/28/24 06:44
Neutrophils % 68.8 % (42.2-75.2) 08/28/24 06:44
Lymphocytes % 14.5 % (20.5-51.1) L 08/28/24 06:44
Monocytes % 8.2 % (1.7-9.3) 08/28/24 06:44
Eosinophils % 6.7 % (0-6) H 08/28/24 06:44
Basophils % 1.2 % (0-2) 08/28/24 06:44
Creatinine 0.6 mg/dL (0.6-1.0) 08/28/24 06:44
Vital Signs
Vital Signs
Temp Pulse Resp BP Pulse Ox
98.2 F 76 16 131/79 94
08/28/24 07:29 08/28/24 07:29 08/28/24 07:29 08/28/24 07:29 08/28/24 07:29
--- NOTE | 2024-08-28 09:30 | W.PN.HOSP.TC ---
Today's Communication/Plan
-
see A/P
Assessment / Plan
Assessment / Plan
HPI: 69-year-old female with PMH hyperlipidemia, depression/anxiety and longstanding smoking history who presented with recurrent episodes of blood-tinged productive cough, shortness of breath, chest pain with chills. 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
She initially developed blood-tinged productive cough and shortness of breath and was seen in urgent care. She was diagnosed with pneumonia at that time. She was placed on doxycycline and improved after about 2 days of medications. However her
symptoms then worsened. She came to the emergency department and was diagnosed with pneumonia again. Patient underwent 2 days of IV antibiotics and will transition to oral amoxicillin. She was discharged the week prior.
Over the last 2 days, patient reported development of blood-tinged cough again. But mostly complained of worsening shortness of breath, chills and sweats. She had no fevers. She denied any history of immunosuppression. She has no history of
recurrent pneumonias. She denied any recent travel. She has no known sick contacts.
In the ED, she was febrile with increased leukocytosis to 14,000. She had a CT PE study which was negative for PE but noted extensive hilar mediastinal and left axillary adenopathy with likely postobstructive atelectasis and/or pneumonia in the
lingula and to a lesser degree in the left upper lobe.
CT PE:
No evidence of pulmonary embolism.
Extensive hilar, mediastinal, and left axillary adenopathy. There may also be adenopathy at the base of neck on the right. Confluent adenopathy encircling the left pulmonary artery as well as the proximal left upper lobe and left lower lobe
pulmonary arteries, with extrinsic compression especially involving the left upper lobe pulmonary artery. There is also proximal left upper lobe and lingula bronchus stenosis, likely contributing to postobstructive atelectasis and/or pneumonia in
the lingula and to a lesser degree in the left upper lobe. Small left pleural effusion. Focal oblong soft tissue attenuation in the left perihilar region. This could represent focal consolidation or mass, such as primary pulmonary neoplasm.
A/P:
# EDSON consolidation and adenopathy, with likely post obstructive pneumonia
# Long smoking history with concern of lung Ca.
Monitor scant hemoptysis
sputum cultures over contaminated
Levaquin changed to ceftriaxone/Flagyl (due to elevated LFT), course for 7 days total
Pulmonary on board, planning outpt bronchoscopy with endobronchial ultrasound
# Liver mets ruled out on CT AP
# Incidental finding of left frontal lobe [address] enhancement on [address] head
# MRI brain noted possible brain mets
MRI brain: numerous small enhancing foci which measure up to 4 mm within the left frontal and left occipital lobes which likely represent intracranial metastasis
# Incidental finding of brain lesion, ?acute infarction.
MRI brain also noted 9 mm and 6 mm focus of restricted diffusion within the left centrum semiovale consistent with acute infarction.
Neuro CS to assess this and determine need for DAPT
# Transaminitis, unclear cause
Hold [employer]IL[employer] statin
Stopped Tylenol
Changed Levaquin to ceftriaxone/Flagyl
AST from 800 to 200, ALT from 600 to 300
Of note, CT AP from 08/26 did not show any significant liver pathology
# Hyperlipidemia
Hold [employer] PORT[employer] BOIL[employer] statin
# Anxiety
Continue sertraline
DVT prophylaxis: SCD this time due to scant hemoptysis
code status: FULL CODE
Emotional support provided to patient
Total time spent 51 min
Anticipated Discharge: 24 - 48 hours
Subjective/Interval History
-
Date of Service: August 28, 2024
Objective Data
-
Labs:
Laboratory Results
08/28/24
06:44
WBC 10.1
Hgb 12.3
Hct 37.5
Plt Count 580 H
Sodium 140
Potassium 5.0
Chloride 104
Carbon Dioxide 24
BUN 12
Creatinine 0.6
Glucose 95
Calcium 9.0
Total Bilirubin 0.4
AST 236 H
ALT 359 H
Alkaline Phosphatase 304 H
Vital Signs:
Vital Signs
Temp Pulse Resp BP Pulse Ox
36.8 C 76 16 131/79 94
08/28/24 07:29 08/28/24 07:29 08/28/24 07:29 08/28/24 07:29 08/28/24 07:29
I&O
08/27/24 08/28/24 08/29/24
06:59 06:59 06:59
Intake Total 1620 / 1620 960 / 960
Balance 1620 / 1620 960 / 960
Review of Systems
-
Respiratory: Reports Hemoptysis (mild, blood tinged)
Physical Exam
-
General: Well Developed, Well Nourished, No Apparent Distress, Comfortable and Conversant
HEENT: Normocephalic and Atraumatic
Respiratory: Clear to Auscultation and Non Labored Respirations; Negative Accessory Resp Muscle Use
Cardiac: Regular Rhythm and S1/S2
GI: Soft, Nontender, Nondistended and Normal Bowel Sounds
Musculoskeletal: No Clubbing, No Cyanosis and No Edema
Skin: Warm and Dry
Neuro: Awake and Alert
Psych: Calm and Intact Judgement/Insight
Data Reviewed
-
CT Scan: Image personally visualized and interpreted, Report Reviewed by me and Discussed with Patient
Labs: Labs Reviewed by me
--- NOTE | 2024-08-28 09:35 | CON.NEURO ---
Neuro Assessment/Plan
Assessment
Acute ischemic left frontal stroke in addition to small us enhancing lesions bihemispherically by MRI of brain
As listed by radiology:
'multiple enhancing cortical foci along the left frontal lobe as follows:
- 3 mm focus along the superior left frontal lobe (series 903 image 139).
- 2 mm focus along the left frontal lobe (series 903 image 137).
- 4 mm focus of enhancement (series 903 image 130) with surrounding T2/FLAIR hyperintense signal.
- 4 mm focus of enhancement more anteriorly (series 903 image 126).
- 4 mm focus of enhancement more inferiorly within the frontal lobe (series 903 image 114).
- 3 mm focus of enhancement along the left occipital lobe (series 903 image 96)'
Plan
Initiate aspirin 325 mg as loading dose then 81 mg routinely
Patient likely will require anticoagulation, to be decided by oncology based on hypercoagulable state due to presumed metastatic lung CA
Continue atorvastatin, follow LDL
Check carotid ultrasound to find if there is critical stenosis present, although patient might not be a candidate for surgical revision
No indication at this time for antiseizure medication
Smoking cessation
DVT prophylaxis needed
Will follow peripherally
Consultation
Order
Date of Consultation: 08/28/24
Requesting Provider: Hospitalists
Reason for Consult: Abnormal MRI brain
Subjective/Objective
Subjective Data
Date of Service: August 28, 2024
Right-Handed
Patient was recently evaluated in this hospital due to left-sided chest pain, later found to have left lung pneumonia, and was discharged on August 21, 2024.
Patient returned to this hospital's emergency department on 08/25/2024 with worsening shortness of breath, chest tightness and productive cough. Patient also was experiencing hemoptysis. Workup demonstrated extrinsic compression of the pulmonary
arteries and likely liver metastases. Due to the presence of abnormalities in the liver as well as lung, CT of the head was performed followed by MRI of the brain.
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
Objective Data
Vital Signs
Temp Pulse Resp BP Pulse Ox
36.8 C 76 16 131/79 94
08/28/24 07:29 08/28/24 07:29 08/28/24 07:29 08/28/24 07:29 08/28/24 07:29
Lab Results
08/28/24 06:44
08/28/24 06:44
Sodium 140 mmol/L (135-145) 08/28/24 06:44
Potassium 5.0 mmol/L (3.5-5.1) 08/28/24 06:44
BUN 12 mg/dl (7-17) 08/28/24 06:44
Glucose 95 mg/dl (70-99) 08/28/24 06:44
Calcium 9.0 mg/dl (8.4-10.2) 08/28/24 06:44
Patient Allergies
No Known Allergies Allergy (Verified 08/19/24 13:45)
Review of Systems
-
History Source: Patient
All other systems: Reviewed and negative
EENT: Negative Blurry Vision or Swallowing Difficulty
Respiratory: Cough
Cardiac: Negative Chest Pain
Abdomen/GI: Negative Incontinence of Stool
Genitourinary: Incontinence
Musculoskeletal: Negative Back Pain or Neck Pain
Neuro: Dizzy; Negative Headache or Weakness
Physical Exam
-
General: No Apparent Distress and Appears Stated Age
Eyes: OU Absent Papilledema, Round OU, [place] Conjunctivae and No Ptosis
HEENT: Anicteric and Moist Mucous Membranes
Neck: Full Range of Motion
Respiratory: No Dyspnea
Cardiac: No JVD
GI: Non-distended
Skin: Unremarkable
Extremities: No Clubbing, No Cyanosis and No Edema
Psych: Intact Judgement/Insight
Extended Neurological Exam
Mood & Affect: Mood Unremarkable and Affect Unremarkable
Attention Span & Concentration: Awake, Alert, Interactive and No Difficulty with 2 Step Request
Memory: Unremarkable
Tremor: Hand Tremor Absent and Head Tremor Absent
Speech: Quality Unremarkable and Quantity Unremarkable
Cranial Nerve II: Left Eye: Pupillary Reactivity Unremarkable, Pupillary Size Unremarkable and Visual [place] Intact
Cranial Nerve II: Right Eye: Pupillary Reactivity Unremarkable, Pupillary Size Unremarkable and Visual Fleming Intact
Cranial Nerves III, IV, : Extraocular Movement: Extraocular Movement Full in all Directions
Cranial Nerve VII: Facial Symmetry: Normal Facial Symmetry
Cranial Nerve VIII: Hearing: Unremarkable Hearing to Normal Conversational Volume
Cranial Nerves IX, X: Palate Movement: Palate Elevation Symmetric
Cranial Nerve XI: Shoulder Shrug: Unremarkable
Cranial Nerve XII: Tongue Protusion: Midline
Muscle Strength, Overall: Full Throughout
Muscle Bulk & Tone: Bulk Unremarkable and Tone Unremarkable
Pronator Drift: No Drift in Upper Extremities
Deep Tendon Reflexes: Unremarkable Throughout
Touch Sensation: Unremarkable and Double Simultaneous Stimulation Unremarkable
Coordination: [id number] Testing Unremarkable and Lptv-Sxay-Tozp movements intact bilaterally
Babinski Sign: Absent Bilaterally
Data Reviewed
-
MRI Head: Report Reviewed and Image Reviewed
Carotid Ultrasound: Ordered
Labs: Report Reviewed
Reviewed with: Physician and Patient
Old Records: Summarized
Medications
-
Active Medications
Generic Name Dose Route Start Last Admin
Trade Name Freq PRN Reason Stop Dose Admin
Acetaminophen 650 mg 08/25/24 20:55 08/27/24 08:45
Acetaminophen 325 Mg Tablet PO 09/22/24 20:54 650 mg
Q4HPRN PRN Administration
mild pain/VALVERDE/temp> 100.4F
Albuterol/Ipratropium 3 ml 08/25/24 20:55
Ipratropium 0.5/Albuterol 3 Mg (3 Ml Ampul) INH
R Q4HPRN PRN
shortness of breath
Protocol
Bisacodyl 10 mg 08/25/24 20:55
Bisacodyl 10 Mg Rectal Suppository RECTAL 09/22/24 20:54
[id number] PRN
constipation
Ceftriaxone Sodium 1,000 mg 08/27/24 12:00 08/27/24 12:32
Ceftriaxone 1000 Mg / 10 Ml Vial IV 1,000 mg
Q24H JESSE Administration
Guaifenesin/Dextromethorphan 5 ml 08/25/24 20:55
Guaifenesin/Dextromethorphan 200 Mg/10 Ml Cup PO 09/22/24 20:54
Q6HPRN PRN
cough
Metronidazole 150 mls @ 150 mls/hr 08/27/24 12:00 08/28/24 04:47
Flagyl 750 Mg IV 150 mls
Q8H JESSE Administration
Lidocaine 1 patch 08/27/24 11:45 08/27/24 11:58
Lidocaine 4% Topical Patch TOPICAL 09/24/24 11:44 1 patch
DAILY JESSE Administration
Protocol
Morphine Sulfate 1 mg 08/26/24 11:20 08/26/24 22:11
Morphine 2 Mg/Ml Syringe IV 09/09/24 11:19 1 mg
Q4HPRN PRN Administration
mod pain
Patch Removal 1 patch 08/27/24 20:00 08/27/24 20:31
Remove Lidocaine Patch REMOVE 09/24/24 19:59 1 patch
DAILY@2000 JESSE Administration
Polyethylene Glycol 17 grams 08/25/24 20:55
Polyethylene Glycol Powder 17 Grams Packet PO 09/22/24 20:54
DAILYPRN PRN
constipation
Senna/Docusate Sodium 1 tablet 08/25/24 20:55
Docusate W/Senna (Karolyn-Colace) Tablet PO 09/22/24 20:54
BIDPRN PRN
constipation
Sertraline HCl 100 mg 08/25/24 22:00 08/27/24 21:40
Sertraline 100 Mg Tablet PO 09/22/24 21:59 100 mg
HS JESSE Administration
Sodium Chloride 0 flush 08/25/24 21:00
Sodium Chloride 0.9% (Flush) Syringe IV 09/22/24 20:59
PER PROTOCOL JESSE
Sterile Water 10 ml 08/27/24 12:00 08/27/24 12:32
Sterile Water For Injection 10 Ml Vial IV 09/24/24 11:59 10 ml
DAILY@1200 JESSE Administration
Home Medications
�Medication �Instructions �Recorded
atorvastatin 40 mg tablet 40 mg PO HS High Cholesterol 08/19/24
sertraline 100 mg tablet 100 mg PO HS depression/anxiety 08/19/24
amoxicillin 500 mg-potassium 1 tab PO BID #20 tabs 08/21/24
clavulanate 125 mg tablet
(Augmentin)
acetaminophen 500 mg tablet 1,000 mg PO Q6HPRN PRN mild 08/25/24
(Tylenol Extra Strength) pain/fever
Past History
Past History
ED Past Medical History: Arrthythmia (PSVT), GERD, Hypercholesterolemia and Other (vertigo 2023, pneumonia August 2024)
ED Past Surgical History: Cardiac (Ablation), Cholecystectomy, Gynecological and Other (macular hole repair 2023)
Social History
Tobacco: Smoker
Alcohol: None
Personal:
--- NOTE | 2024-08-28 10:20 | W.PN.PUL3 ---
Today's Communication / Plan
-
Await further neurologic planning by care team
Will see if bronchoscopy can be moved up to next week but no guarantees
Otherwise, if medically stable, would d/c to follow as OP for her scheduled date on 09/08
Assessment
-
69-year-old woman who is a daily smoker, has been complaining of cough, shortness of breath, phlegm production for 2 weeks. Initially went to the urgent care center. Treated with oral antibiotics. Subsequently admitted to the hospital for 24
hours with IV antibiotics. Discharged on oral antibiotics. Returns after 48 hours complaining of worsening symptoms with mild hemoptysis. CT chest was performed and showed abnormal findings suggestive of possible lung cancer.
Cough/hemoptysis.
Postobstructive pneumonia
Abnormal CT chest: Reviewed,-suspect malignancy
No evidence of pulmonary embolism.
Extensive hilar, mediastinal, and left axillary adenopathy. There may also be adenopathy at the base of neck on the right. Confluent adenopathy encircling the left pulmonary artery as well as the proximal left upper lobe and left lower lobe
pulmonary arteries, with extrinsic compression especially involving the left upper lobe pulmonary artery. There is also proximal left upper lobe and lingula bronchus stenosis, likely contributing to postobstructive atelectasis and/or pneumonia in
the lingula and to a lesser degree in the left upper lobe. Small left pleural effusion. Focal oblong soft tissue attenuation in the left perihilar region. This could represent focal consolidation or mass, such as primary pulmonary neoplasm.
Conditions present prior admission:
Hyperlipidemia
Anxiety
Tobacco abuse
Assessment and plan:
CT scan finding highly suggestive of lung cancer, possibly metastatic to cervical and left axillary lymph nodes.
Likely component of postobstructive pneumonia as well.
On exam no palpable axillary or cervical lymph nodes.
CT abdomen pelvis negative for metastatic disease
CT brain noted with possible brain mets-for MRI.
-
Agree with antibiotics and complete total of 7 days.
Monitor for hemoptysis, currently mild
Appears nontoxic
Not requiring oxygen supplementation
Was able to ambulate to the restroom without shortness of breath
-
Will need tissue biopsy, either with ultrasound-guided needle aspiration via bronchoscopy.
Will discuss with Dr. Pratt/Dr. Thakur: Case discussed, unfortunately not slots available for procedure this week. Will schedule in the outpatient setting in the next week or so, my office will arrange.
I personally discussed with patient in detail and she is agreeable.
This potentially could be moved up sooner but not a guarantee, will let her know
-
Smoking cessation strongly encouraged
Neurologic eval ongoing per team
She is not being discharged until this is completed
If she ends up staying inpatient due to other w/u, we can arrange for inpatient case if available
-
From the pulmonary perspective okay to discharge. Patient instructed to call my office if there is any issues, my office will call her to schedule elective bronchoscopy with endobronchial ultrasound guidance/needle aspiration of lymph node/mass.
If hemoptysis worsen in the interim then we will need to proceed airway inspection sooner.
She will need outpatient pulmonary follow-up, information will be left in the chart.
Subjective Data
-
Date of Service:
Date of Service: August 28, 2024
Chief Complaint: Pulmonary Follow Up (Abnormal CT chest/pneumonia)
Subjective:
No new complaints
Remains stable on RA
Objective Data
Data Reviewed
Vital Signs / I&O / Oxygen:
Vital Signs
Temp Pulse Resp BP Pulse Ox
98.2 F 76 16 131/79 94
08/28/24 07:29 08/28/24 07:29 08/28/24 07:29 08/28/24 07:29 08/28/24 07:29
Intake and Output
08/27/24 08/28/24 08/29/24
06:59 06:59 06:59
Intake Total 1620 / 1620 960 / 960
Balance 1620 / 1620 960 / 960
SaO2 94
Physical Exam
General: Comfortable
HEENT: Normocephalic
Cardiovascular: S1-S2
Respiratory: Clear and Non-Labored Respirations
GI: Non Distended
Neurology: Awake, Alert and No Motor Deficits
Skin: Warm
Labs/Micro/Reports
Lab Data
08/28/24 06:44
08/28/24 06:44
Microbiology
08/26/24 08:19 Mouth/Oral Cavity Respiratory Culture - Final
08/26/24 08:19 Mouth/Oral Cavity Gram Stain - Final
[2024-08-28] MEDS: ASPIRIN ENTERIC COATED 325 MG PO (10:37)
[2024-08-28] MEDS: LIDOCAINE 4% PATCH 1 PATCH TOPICAL (10:38)
[2024-08-28] MEDS: ROCEPHIN 1000 MG IV (13:28)
[2024-08-28] MEDS: STERILE WATER FOR INJECTION 10 ML IV (13:29)
[2024-08-28 16:10] VITALS: BP 122/72
[2024-08-28] MEDS: ZOLOFT 100 MG PO (21:40)
[2024-08-28 23:13] VITALS: BP 133/81
[2024-08-29] MEDS: FLAGYL 750 MG 150 IV ×2 (04:11→12:12)
[2024-08-29 07:23] VITALS: BP 145/91
[2024-08-29] MEDS: LIDOCAINE 4% PATCH TOPICAL (08:43)
--- NOTE | 2024-08-29 08:56 | W.PN.ONC2 ---
Today's Communication / Plan
-
Discussed case with primary service, neurosurgery, radiation oncology -no role for neurosurgery.
consider gamma knife upon tissue diagnosis - Dr. Matthews plans to make XRT referral as well to consider SBRT with [facility]
Discussed case with IR to consider LN biopsy for tissue diagnosis
CVA management per neurology
Pt is known to Dr. Matthews with [place] [facility] - I called pt primary oncologist to provide updates and expedite prompt follow up upon discharge - Dr. Matthews will follow pt for next steps in treatment upon discharge
Pt plans to quit smoking effective immediately
Impression
Impression
Clinical and radiologic findings suggestive of advanced lung carcinoma with postobstructive pneumonia
METAL MELTER metastases
CVA
Plan
Plan
Tissue diagnosis is necessary to outline appropriate therapy
Bronchoscopy for biopsy - IHC, PDL and NGS testing pending tissue type
Recommend IR LN bx to expedite diagnosis
Outpatient PET CT scan
therapeutic interventions for advanced lung cancer including chemotherapy, immunotherapy, targeted therapy and radiation therapy (gamma knife evaluation)
Subjective/Objective
Subjective
no new complaints
denies h/a or other neurological sxs
Vital Signs:
Vital Signs
Temp Pulse Resp BP Pulse Ox
98.1 F 79 20 145/91 96
08/29/24 07:23 08/29/24 07:23 08/29/24 07:23 08/29/24 07:23 08/29/24 07:23
Lab Results:
Laboratory Data
WBC 10.1 10^3/uL (4.8-10.8) 08/28/24 06:44
Hgb 12.3 g/dL (12.0-16.0) 08/28/24 06:44
Plt Count 580 10^3/uL (130-400) H 08/28/24 06:44
eGFR > 60.00 08/28/24 06:44
Orders
Orders
Orders From Last 24 Hours
08/29/24 08:49
Neurosurgery Consult Routine
Radiation Oncology Consult Routine
--- NOTE | 2024-08-29 09:14 | W.PN.UPDATE ---
Update Note
Progress Note Update
Reviewed patients imaging
There multiple subcentimeter intra axial lesions most likely representing metastasis
There are no surgical needs on this patient
Rec to get tissue diagnosis from lung
Neurosurgery will sign off, reconsult if needed defer care to heme/onc, rad/onc, primary team
[2024-08-29 09:16] LABS: % Basophils 1.1 % (0-2); % Eosinophils 7.2 % (0-6); % Immature Granulocytes 0.6 % (0-0.5); % Lymphocytes 16.7 % (20.5-51.1); % Neutrophils 66.4 % (42.2-75.2); Absolute Basophils 0.1 10^3/uL (0-0.2); Absolute Eosinophils 0.8 10^3/uL (0-0.7); Absolute Immature Granulocytes 0.1 10^3/uL (0-0.05); Absolute Lymphocytes 1.8 10^3/uL (1.2-3.4); Absolute Monocytes 0.9 10^3/uL (0.1-0.6); Absolute Neutrophils 7.2 10^3/uL (1.4-6.5); Hematocrit 36.9 % (37.0-47.0); Hemoglobin 12.2 g/dL (12.0-16.0); Mean Corp Hgb Conc. 33.1 g/dL (33.0-37.0); Mean Corpuscular Hgb 30.6 pg (27.0-31.0); Mean Corpuscular Volume 92.5 fL (81.0-99.0); Mean Platelet Volume 9.8 fL (7.4-10.4); Nucleated Red Blood Cells % 0 %; Platelet Count 606 10^3/uL (130-400); Red Blood Cell Count 3.99 10^6/uL (4.20-5.40); Red Cell Dist. Width 12.5 % (11.5-14.5); White Blood Cell Count 10.9 10^3/uL (4.8-10.8)
--- NOTE | 2024-08-29 09:26 | W.PN.HOSP.TC ---
Addendum entered and electronically signed by Yecenia Barnhart MD 08/29/24 15:32:
total DC time 40 min
Extensive coordination of care with pulmonary, oncology, IR and nursing staff
Original Note:
Today's Communication/Plan
-
possible DC today
Assessment / Plan
Assessment / Plan
HPI: 69-year-old female with PMH hyperlipidemia, depression/anxiety and longstanding smoking history who presented with recurrent episodes of blood-tinged productive cough, shortness of breath, chest pain with chills. Symptoms started 2 weeks [employer].
She initially developed blood-tinged productive cough and shortness of breath and was seen in urgent care. She was diagnosed with pneumonia at that time. She was placed on doxycycline and improved after about 2 days of medications. However her
symptoms then worsened. She came to the emergency department and was diagnosed with pneumonia again. Patient underwent 2 days of IV antibiotics and will transition to oral amoxicillin. She was discharged the week prior.
Over the last 2 days, patient reported development of blood-tinged cough again. But mostly complained of worsening shortness of breath, chills and sweats. She had no fevers. She denied any history of immunosuppression. She has no history of
recurrent pneumonias. She denied any recent travel. She has no known sick contacts.
In the ED, she was febrile with increased leukocytosis to 14,000. She had a CT PE study which was negative for PE but noted extensive hilar mediastinal and left axillary adenopathy with likely postobstructive atelectasis and/or pneumonia in the
lingula and to a lesser degree in the left upper lobe.
CT PE:
No evidence of pulmonary embolism.
Extensive hilar, mediastinal, and left axillary adenopathy. There may also be adenopathy at the base of neck on the right. Confluent adenopathy encircling the left pulmonary artery as well as the proximal left upper lobe and left lower lobe
pulmonary arteries, with extrinsic compression especially involving the left upper lobe pulmonary artery. There is also proximal left upper lobe and lingula bronchus stenosis, likely contributing to postobstructive atelectasis and/or pneumonia in
the lingula and to a lesser degree in the left upper lobe. Small left pleural effusion. Focal oblong soft tissue attenuation in the left perihilar region. This could represent focal consolidation or mass, such as primary pulmonary neoplasm.
A/P:
# EDSON consolidation and adenopathy, with likely post obstructive pneumonia
# Long smoking history with concern of lung Ca.
Monitor scant hemoptysis
sputum cultures over contaminated
Levaquin changed to ceftriaxone/Flagyl (due to elevated LFT), course for 7 days total. Could transition to PO meds Cefdinir and Flagyl upon discharge.
Pulmonary on board, planning outpt bronchoscopy with endobronchial ultrasound
# Liver mets ruled out on CT AP
# Incidental finding of left frontal lobe [address] head
# Subsequent MRI brain noted possible brain mets
MRI brain report: numerous small enhancing foci which measure up to 4 mm within the left frontal and left occipital lobes which likely represent intracranial metastasis
# Incidental finding of brain lesion, ?acute infarction.
MRI brain also noted 9 mm and 6 mm focus of restricted diffusion within the left centrum semiovale consistent with acute infarction.
Appreciate Neuro input. Recc to start ASA (can continue ASA with bronch, d/w pulm)
Check LDL
Carotid US ordered per Neuro
# Transaminitis, unclear cause
Hold [employer] statin
Stopped Tylenol
Changed Levaquin to ceftriaxone/Flagyl
AST from 800 to 200, ALT from 600 to 300, pending today's lab
Of note, CT AP from 08/26 did not show any significant liver pathology
# Hyperlipidemia
Hold [employer] statin, would resume following discharge for stroke as well
# Anxiety
Continue sertraline
DVT prophylaxis: SCD this time due to scant hemoptysis
code status: FULL CODE
DW Onc, Pulm, Neuro
total time spent 51 min
Anticipated Discharge: Within 24 hours
Subjective/Interval History
-
Date of Service: August 29, 2024
Objective Data
-
Labs:
Laboratory Results
08/29/24
07:40
WBC 10.9 H
Hgb 12.2
Hct 36.9 L
Plt Count 606 H
Sodium Pending
Potassium Pending
Chloride Pending
Carbon Dioxide Pending
BUN Pending
Creatinine Pending
Glucose Pending
Calcium Pending
Total Bilirubin Pending
AST Pending
ALT Pending
Alkaline Phosphatase Pending
Vital Signs:
Vital Signs
Temp Pulse Resp BP Pulse Ox
36.7 C 79 20 145/91 96
08/29/24 07:23 08/29/24 07:23 08/29/24 07:23 08/29/24 07:23 08/29/24 07:23
I&O
08/28/24 08/29/24 08/30/24
06:59 06:59 06:59
Intake Total 960 / 960 480 / 480
Balance 960 / 960 480 / 480
Review of Systems
-
All other systems: Reviewed and negative
Physical Exam
-
General: Well Developed, Well Nourished, No Apparent Distress, Comfortable and Conversant
HEENT: Normocephalic and Atraumatic
Respiratory: Clear to Auscultation and Non Labored Respirations; Negative Accessory Resp Muscle Use
Cardiac: Regular Rhythm and S1/S2
GI: Soft, Nontender, Nondistended and Normal Bowel Sounds
Musculoskeletal: No Clubbing, No Cyanosis and No Edema
Skin: Warm and Dry
Neuro: Awake and Alert
Psych: Calm and Intact Judgement/Insight
Data Reviewed
-
CT Scan: Image personally visualized and interpreted, Report Reviewed by me and Discussed with Patient
Labs: Labs Reviewed by me
[2024-08-29] MEDS: ASPIR LOW (ENTERIC COATED) 81 MG PO (09:33)
[2024-08-29 09:50] LABS: ALT (SGPT) 227 U/L (0-35); AST (SGOT) 89 U/L (14-36); Albumin 3.2 g/dl (3.5-5.0); Alkaline Phosphatase 265 U/L (38-126); Blood Urea Nitrogen 13 mg/dl (7-17); Calcium 8.9 mg/dl (8.4-10.2); Carbon Dioxide 23 mmol/L (22-30); Chloride 104 mmol/L (98-107); Direct Bilirubin 0.2 mg/dl (0.0-0.4); Estimated Creatinine Clearance 79 ml/min; Glucose 92 mg/dl (70-99); HDL Cholesterol 27 mg/dl; LDL Cholesterol, Calculated 29 mg/dl; Magnesium 2.2 mg/dl (1.6-2.3); Potassium 4.9 mmol/L (3.5-5.1); Sodium 139 mmol/L (135-145); Total Bilirubin 0.3 mg/dl (0.2-1.3); Total Cholesterol 69 mg/dl (50-199); Total Protein 6.2 g/dl (6.3-8.2); Triglyceride 65 mg/dl (10-149); Very Low Density Lipoprotein 13 mg/dl (0-30); eGFR > 60.00
[2024-08-29] MEDS: STERILE WATER FOR INJECTION 10 ML IV (12:12)
[2024-08-29] MEDS: ROCEPHIN 1000 MG IV (12:13)
--- NOTE | 2024-08-29 13:24 | W.PN.PUL3 ---
Today's Communication / Plan
-
For axillary biopsy
Will keep tentatively bronchoscopy on the schedule in case more tissue is needed.
Sign off
Outpatient pulmonary follow-up
Assessment
-
69-year-old woman who is a daily smoker, has been complaining of cough, shortness of breath, phlegm production for 2 weeks. Initially went to the urgent care center. Treated with oral antibiotics. Subsequently admitted to the hospital for 24
hours with IV antibiotics. Discharged on oral antibiotics. Returns after 48 hours complaining of worsening symptoms with mild hemoptysis. CT chest was performed and showed abnormal findings suggestive of possible lung cancer.
Cough/hemoptysis.
Postobstructive pneumonia
Abnormal CT chest: Reviewed,-suspect malignancy
No evidence of pulmonary embolism.
Extensive hilar, mediastinal, and left axillary adenopathy. There may also be adenopathy at the base of neck on the right. Confluent adenopathy encircling the left pulmonary artery as well as the proximal left upper lobe and left lower lobe
pulmonary arteries, with extrinsic compression especially involving the left upper lobe pulmonary artery. There is also proximal left upper lobe and lingula bronchus stenosis, likely contributing to postobstructive atelectasis and/or pneumonia in
the lingula and to a lesser degree in the left upper lobe. Small left pleural effusion. Focal oblong soft tissue attenuation in the left perihilar region. This could represent focal consolidation or mass, such as primary pulmonary neoplasm.
Conditions present prior admission:
Hyperlipidemia
Anxiety
Tobacco abuse
Assessment and plan:
CT scan finding highly suggestive of lung cancer, possibly metastatic to cervical and left axillary lymph nodes.
Likely component of postobstructive pneumonia as well.
On exam no palpable axillary or cervical lymph nodes.
CT abdomen pelvis negative for metastatic disease
CT brain noted with possible brain mets-for MRI.
-
Complete antibiotics and complete total of 7 days.
Monitor for hemoptysis, currently mild-not worsening.
Appears nontoxic
Not requiring oxygen supplementation
Denies shortness of breath.
-
Will need tissue biopsy, either with ultrasound-guided needle aspiration via bronchoscopy.
Will discuss with Dr. Pratt/Dr. Thakur: Case discussed, unfortunately not slots available for procedure this week. Will schedule in the outpatient setting in the next week or so, my office will arrange.
I personally discussed with patient in detail and she is agreeable.
Interventional radiology has been consulted for possibility axillary lymph node biopsy.
Will keep the bronchoscopy records in case more tissue is needed for diagnosis. She is scheduled for 08/09/2024.
-
Smoking cessation strongly encouraged
Brain metastatic disease noted.
Oncology correspondence reviewed she has a primary oncologist who is going to follow
Neurosurgical evaluation also noted: No need for neurosurgical intervention.
-
From the pulmonary perspective okay to discharge. Patient instructed to call my office if there is any issues, my office will call her to schedule elective bronchoscopy with endobronchial ultrasound guidance/needle aspiration of lymph node/mass.
If hemoptysis worsen in the interim then we will need to proceed airway inspection sooner.
She will need outpatient pulmonary follow-up, information will be left in the chart.
-
No additional recommendation from the pulmonary perspective
Sign off
Subjective Data
-
Date of Service:
Date of Service: August 29, 2024
Chief Complaint: Pulmonary Follow Up (Abnormal CT chest/pneumonia)
Subjective:
No new complaints
Denies headache or blurry vision
Denies shortness of breath
Minimal hemoptysis
Review of Systems
General: Fever (n)
Cardiopulmonary: Dyspnea (n)
GI: Abdominal Pain (n)
Neuro: Headache (n)
Objective Data
Data Reviewed
Vital Signs / I&O / Oxygen:
Vital Signs
Temp Pulse Resp BP Pulse Ox
98.1 F 79 20 145/91 96
08/29/24 07:23 08/29/24 07:23 08/29/24 07:23 08/29/24 07:23 08/29/24 07:23
Intake and Output
08/28/24 08/29/24 08/30/24
06:59 06:59 06:59
Intake Total 960 / 960 480 / 480
Balance 960 / 960 480 / 480
SaO2 96
Physical Exam
General: Comfortable
HEENT: Normocephalic
Cardiovascular: S1-S2
Respiratory: Clear and Non-Labored Respirations
GI: Non Distended
Neurology: Awake, Alert and No Motor Deficits
Skin: Warm
Labs/Micro/Reports
Lab Data
08/29/24 07:40
08/29/24 07:40
Microbiology
08/26/24 08:19 Mouth/Oral Cavity Respiratory Culture - Final
08/26/24 08:19 Mouth/Oral Cavity Gram Stain - Final
--- NOTE | 2024-08-29 14:43 | W.DCSUMMARY ---
Discharge Summary
Discharge Data
Date of Admission: 08/25/24
Date of Discharge: 08/29/24
-
Pending Results: No
Hospital Course
Principal Diagnosis:
Left upper lobe consolidation and adenopathy, with likely post obstructive pneumonia
Long standing smoking history with concern of lung cancer
Likely lung cancer with multiple brain metastases
Incidental finding of brain lesion within the left centrum semiovale, possibly acute infarction.
Chronic Diagnoses:�
Hyperlipidemia
Anxiety on sertraline
Consultations:�
Pulmonary
Oncology
Neurology
Procedures:�
left Axillary lymph node biopsy
Clinical course:�
This is a 69-year-old female with past medical history as stated above, who presented with shortness of breath, and blood-tinged productive cough.
Problem 1:
Left upper lobe consolidation and adenopathy, likely post obstructive pneumonia.
This is in setting of long standing smoking history with concern of lung cancer.
She received Levaquin initially to treat the postobstructive pneumonia. Levaquin was changed to IV ceftriaxone and Flagyl due to elevated LFT.
She can continue with cefdinir and Flagyl for 4 more days (total 7 days course) following discharge.
She has been informed to follow-up with pulmonary outpatient for bronchoscopy with endobronchial ultrasound.
She underwent left axillary lymph node biopsy prior to discharge, hopefully this can help determine the type and stage of her likely underlying lung cancer.
Problem 2:
Likely lung cancer with multiple brain metastases noted on MRI brain.
Directed therapy versus radiation to be determined by oncology outpatient following availability of pathology report.
Problem 3:
Incidental finding of brain lesion within the left centrum semiovale, possibly acute infarction.
She was recommended to start aspirin per neurology.
Her LDL is within normal limits at 29. She can continue with her prior to admission Lipitor 40 mg at bedtime.
Her carotid ultrasound was negative for stenosis.
Problem 4:
Transaminitis, unclear cause.
Her LFT improved: AST from 800 to 89, ALT from 600 to 227.
She can check repeat LFT with result to her PCP in 1 week.
She has been informed to hold high-dose Tylenol while waiting outpatient LFT result.
She can resume prior to admission statin in setting of likely acute stroke.
Of note, her CT AP from 08/26 during this admission did not show any significant liver pathology
As for the rest of her medical problems, they were stable during her hospital stay.
Discharge Plan
-
Patient Disposition: Home (Routine Discharge)
Discharge Diagnosis/Procedures: Left upper lobe consolidation and adenopathy, with likely post obstructive pneumonia;
Long smoking history with concern of metastatic lung cancer (mets to brain);
status post axillary lymph node biopsy;
Incidental finding of brain lesion (left centrum semiovale) that is possibly acute infarction;
Elevated liver enzymes (unclear cause) but improving
Condition: Fair
Diet: As tolerated, Low Fat, Low Cholesterol and Low Sodium
Activity: As tolerated
Driving Restrictions: As prior to admission
Blood Work: CBC and CMP in 1 week, results to your PCP
Activity Restrictions/Additional Instructions:
Follow up with Pulm for outpatient bronchoscopy
Follow axillary lymph node biopsy result with oncologist outpatient
Referrals:
Giovanni Islas DO [Active] -
Misael Burgos MD [Active] - in two to three weeks (May see [facility], PFT/6MWT)
Jeremy Montoya MD [Family Provider] - in less than 1 week
Additional Discharge Medication Instructions: hold high dose Tylenol until your outpatient LFT result is out and checked by your PCP
Continue antibiotics cefdinir and Flagyl for 4 more days
Continue baby aspirin
Prescriptions:
New
aspirin 81 mg Tablet,Delayed Release (Dr/Ec)
81 mg PO DAILY Qty: 30 0RF
cefdinir 300 mg capsule
300 mg PO BID 4 Days Qty: 8 0RF
metronidazole 500 mg tablet
500 mg PO Q8H 4 Days Qty: 12 0RF
Continued
atorvastatin 40 mg Tablet
40 mg PO HS
sertraline 100 mg Tablet
100 mg PO HS
Discontinued
amoxicillin-pot clavulanate [Augmentin] 500-125 mg tablet
1 tab PO BID Qty: 20 0RF
acetaminophen [Tylenol Extra Strength] 500 mg Tablet
1,000 mg PO Q6HPRN PRN (Reason: mild pain/fever)
Discharge Orders:
Discharge Patient (As Directed); Ordered 08/29/24
Ordered By: Yecenia Barnhart
Discharge Date and Time
Print Language: BELGIAN
--- NOTE | 2024-08-29 14:48 | CM ---
Home today no needs.
Plan; Home no needs.
[2024-08-29 15:50] VITALS: BP 140/88
== END 2024-08-29 17:03 | disposition home or self-care (01) | DRG 987 ==
LOC: 4 WEST ACU 20:07
PROVIDERS: Radiology Vascular & Interventional Radiology; ADMITTING PHYSICIAN Internal Medicine; ATTENDING PHYSICIAN Internal Medicine; CONSULT PHYSICIAN Internal Medicine Hematology & Oncology; CONSULT PHYSICIAN Psychiatry & Neurology Neurology; EMERGENCY PHYSICIAN Emergency Medicine; FAMILY PHYSICIAN Internal Medicine; OTHER PHYSICIAN Internal Medicine Critical Care Medicine
PROC: 07B63ZX Excision of Left Axillary Lymphatic, Percutaneous Approach, Diagnostic (ICD-10-PCS; 2024-08-29)
DX: C34.90 Malignant neoplasm of unspecified part of unspecified bronchus or lung (principal); I63.9 Cerebral infarction, unspecified; J18.8 Other pneumonia, unspecified organism; R04.2 Hemoptysis; C79.31 Secondary malignant neoplasm of brain; C77.3 Secondary and unspecified malignant neoplasm of axilla and upper limb lymph nodes; E78.00 Pure hypercholesterolemia, unspecified; K21.9 Gastro-esophageal reflux disease without esophagitis; F32.A Depression, unspecified; F41.9 Anxiety disorder, unspecified; R74.01 Elevation of levels of liver transaminase levels; F17.200 Nicotine dependence, unspecified, uncomplicated; Z79.899 Other long term (current) drug therapy; Z79.2 Long term (current) use of antibiotics
CPT/HCPCS: 88305; 38505; 70470; 70553; 71046; 71275; 74177; 76942; 80048; 80053; 80061; 81459; 82248; 83735; 85025; 85027; 87205; 88333; 88341; 88342; 88360; 93005; 93880; 96361; 96365; 96366; 96375; 99285; 99406; A9575; Q9967